=== PATIENT | female | born 1985 | race Caucasian/White ===

== ENCOUNTER 2021-04-09 18:43 | Inpatient (IN) | payer MEDICAID, SELFPAY ==
--- NOTE | ~2021-04-09 | CT_ITS ---
EXAMINATION: CT ABDOMEN AND PELVIS WITHOUT CONTRAST CLINICAL INFORMATION: Urostomy. Left flank pain. Hx pyelo and stones COMPARISON: CT scan abdomen pelvis 01/07/2019 TECHNIQUE: Multidetector volumetric imaging was performed from the superior aspect of the liver through the pubic symphysis. Sagittal and coronal reformatted images were obtained on the technologist's workstation. This CT examination was performed using dose optimization techniques as appropriate, variously including the following: *Automated exposure control *Adjustment of mA and/or kV according to patient size (this includes techniques or standardized protocols for targeted exams where dose is matched to indication/reason for exam; i.e. extremities or head) *Use of iterative reconstruction technique DLP: 263 mGy-cm FINDINGS: LUNG BASES: The visualized lung bases are unremarkable. LIVER, GALLBLADDER, AND BILIARY TREE: The liver is normal in size, shape, and attenuation. No focal hepatic lesion or biliary ductal dilatation is present. Status post cholecystectomy PANCREAS: Unremarkable. SPLEEN: Unremarkable. ADRENAL GLANDS: Adrenal glands not well seen. Limited fat planes in patient. KIDNEYS AND URETERS: The kidneys absent. Left kidney is enlarged. Left kidney measures 12.5 cm superior-inferior. No renal calculus or hydronephrosis. BLADDER: Surgically removed. GASTROINTESTINAL TRACT: History of urostomy. Postsurgical changes of bowel. No abnormally dilated bowel loop. MESENTERY: No free air or free fluid. No inflammation. ABDOMINAL WALL: Urostomy at the anterior abdominal wall. LYMPH NODES: Normal. VASCULAR: Unremarkable. PELVIC VISCERA: Unremarkable. OSSEOUS STRUCTURES: Unremarkable. CT/CT abdomen pelvis wo con IMPRESSION: Status post cystectomy with urostomy. Absent right kidney. Enlarged left kidney. No acute abnormality of the abdomen or pelvis.
--- NOTE | ~2021-04-09 | XR_ITS ---
EXAMINATION: XR CHEST CLINICAL INFORMATION: Attempted central line bilaterally. Question pneumothorax COMPARISON: 11/13/2018 TECHNIQUE: Frontal view of the chest was obtained. FINDINGS: No pneumothorax is detected. Heart size normal. No infiltrates are seen. Equivocal are present redistribution present. No gross CHF. No pleural effusion. XR/XR chest 1V IMPRESSION: No pneumothorax seen after multiple attempts at bilateral central lines
[2021-04-09 19:08] VITALS: BP 115/58; PULSE 66; RESP 16; TEMP 36.8; O2SAT 97; BMI 24.5
--- NOTE | 2021-04-09 19:15 | PC.NURSE ---
PT REFUSING TO CHANGE INTO HOSPITAL GOWN OR SHOW RN ABDOMEN TO ASSES UROSTOMY SITE. PT UNWILLING TO ASSIST WITH PROVIDING PAST MEDICAL HISTORY.
--- NOTE | 2021-04-09 19:45 | ED.GENADULT ---
HPI - General Adult General Chief complaint: General Medical <KRIS Oliver Last Filed: 04/09/21 20:43> Stated complaint: ABDOMINAL PAIN <KRIS Oliver Last Filed: 04/09/21 20:43> Time Seen by Provider: 04/09/21 19:27 <KRIS Oliver Last Filed: 04/09/21 20:43> Source: patient <KRIS Oliver Last Filed: 04/09/21 20:43> History of Present Illness HPI narrative: 36-year-old female with a PMHx of IVDU, history of congenital bladder and ureter abnormalities (managed mostly at [facility] remotely), s/p ileal conduit and urostomy, prior total L kidney loss, HCV infection, homeless, BIBA in [employer] custody complaining of bleeding urostomy site x months, urostomy missing bag secondary to people stealing it, and left flank pain. Also reports chills. Admits to multiple episodes of kidney infections/UTI. Denies fever, nausea/vomiting, diarrhea States she was at [facility] yesterday but signed out AMA <KRIS Oliver - Last Filed: 04/09/21 20:43> Related Data Home medications: Home Medications Medication Instructions Recorded Confirmed No Known Home Meds 04/09/21 04/09/21 <KRIS Oliver Last Filed: 04/09/21 20:43> Allergies/adverse reactions: Allergies Allergy/AdvReac Type Severity Reaction Status Date / Time morphine [Morphine] Allergy Severe TROUBLE Verified 04/09/21 19:16 BREATHING Sulfa (Sulfonamide Allergy Mild HIVES Verified 04/09/21 19:16 Antibiotics) <KRIS Oliver Last Filed: 04/09/21 20:43> Review of Systems Review of Systems: Constitutional: No Fever, + Chills, No Night Sweats, No Fatigue, No Malaise Cardiovascular: No Chest Pain, No SOB Respiratory: No Cough, No Dyspnea Gastrointestinal: No Nausea, No Vomiting, + Abdominal pain Genitourinary: No Dysuria, No Urinary Frequency, No Hematuria, + Flank Pain, No Urinary Flow Changes Musculoskeletal: No joint pain, No Myalgias, No Joint Swelling Skin: + Skin Lesions, No rash <KRIS Oliver - Last Filed: 04/09/21 20:43> Yes all other systems are reviewed and are negative <KRIS Oliver - Last Filed: 04/09/21 20:43> [facility] Past Medical History Attestation statement: The following information was validated with the patient. <KRIS Oliver - Last Filed: 04/09/21 20:43> Surgical History: Surgical History (Updated 04/09/21 @ 19:12 by Roselia Mascorro) History of urostomy <KRIS Oliver - Last Filed: 04/09/21 20:43> Social History Social History: Social History Advance Directives: No Advance Directives Information Provided: Yes <KRIS Oliver - Last Filed: 04/09/21 20:43> Physical Exam Vital Signs: Vital Signs: Last Vital Signs Temp 97.9 F 04/09/21 22:24 Pulse 65 04/10/21 00:49 Resp 13 04/10/21 00:49 BP 102/59 L 04/10/21 00:49 Pulse Ox 100 04/10/21 00:49 Body Mass Index 24.5 <KRIS Oliver - Last Filed: 04/09/21 20:43> Vital Signs: Last Vital Signs Temp 97.9 F 04/09/21 22:24 Pulse 65 04/10/21 00:49 Resp 13 04/10/21 00:49 BP 102/59 L 04/10/21 00:49 Pulse Ox 100 04/10/21 00:49 Body Mass Index 24.5 <Bandar Mcgovern MD - Last Filed: 04/10/21 01:03> Const: Other: Appears under the influence, lethargic during evaluation, easily arousable to voice <KRIS Oliver - Last Filed: 04/09/21 20:43> Nutritional Appearance: underweight <KRIS Oliver - Last Filed: 04/09/21 20:43> HENMT: Head: Yes normal to inspection <KRIS Oliver - Last Filed: 04/09/21 20:43> Ears: hearing grossly normal bilaterally <KRIS Oliver - Last Filed: 04/09/21 20:43> General nose exam: Normal external nose present <Amie Hernandez [facility] Last Filed: 04/09/21 20:43> Face and sinus: Yes normal facial exam <Amie Hernandez [facility] Last Filed: 04/09/21 20:43> Eyes: General: appearance normal, both eyes and all related structures <Amie Hernandez [facility] Last Filed: 04/09/21 20:43> EOM: EOMs intact bilaterally <Amie Hernandez [facility] Last Filed: 04/09/21 20:43> Neck: Neck: Yes normal visual inspection <Amie Hernandez [facility] Last Filed: 04/09/21 20:43> Resp: Effort & Inspection: normal respiratory effort <Amie Hernandez [facility] Last Filed: 04/09/21 20:43> Cardio: Rate: regular rate <Amie Hernandez [facility] Last Filed: 04/09/21 20:43> GI: Other: Urostomy stoma present in right lower quadrant with friability. No surrounding erythema/cellulitis or streaking. No pus drainage <Amie Hernandez [facility] Last Filed: 04/09/21 20:43> Inspection: Yes normal to inspection <Amie Hernandez [facility] Last Filed: 04/09/21 20:43> Palpation (GI): Soft to palpation, Tenderness to palpation present (GI) (Diffusely), no guarding and not rigid <Amie Hernandez [facility] Last Filed: 04/09/21 20:43> : General: Yes CVA tenderness on the left <Amie Hernandez [facility] Last Filed: 04/09/21 20:43> Skin: Rashes: no rashes <Amie Hernandez [facility] Last Filed: 04/09/21 20:43> Extrem: General: Yes normal to inspection <Amie Hernandez [facility] Last Filed: 04/09/21 20:43> Course Course Course Narrative: -2041--patient is a difficult stick, refusing lab draws intermittently, feeding/PO hydrating at this time, will retry -2099--ED care transferred to ILEANA Trinh pending labs, CT, & dispo per results <Amie Hernandez [facility] Last Filed: 04/09/21 20:43> Procedures Procedure Narrative Procedure Narrative: Procedure: Subclavian central line and procedural sedation I did discuss the procedure and potential complications with the patient. She did give me informed consent, she did not want to sign the consent form however. The patient was placed on a cardiac, O2 saturation and end-tidal CO2 monitor. She was given ketamine 4 milligrams/kilogram (240 mg) IM. After approximately 4 minutes the patient was sufficiently sedated. I initially prepped the right subclavian area and made 2 attempts to access the subclavian but I was unsuccessful. I then prepped the left subclavian area and was again unable to achieve access into the subclavian vein. The procedures were done with full sterile procedure and a full drape. The post procedure one-view chest x-ray revealed no evidence of pneumothorax. The patient was sufficiently sedated throughout the procedure and had no complications from the sedation with the procedure. <Bandar Mcgovern MD - Last Filed: 04/10/21 01:03> Medical Decision Making MDM Narrative Medical decision making narrative: 36-year-old female with a PMHx of IVDU, history of congenital bladder and ureter abnormalities (managed mostly at [facility] remotely), s/p ileal conduit and urostomy, prior total L kidney loss, HCV infection, homeless, BIBA in [employer] custody complaining of bleeding urostomy site x months, urostomy missing bag secondary to people stealing it, and left flank pain. Also reports chills. On exam VSS, appears under the influence, lethargic however easily arousable on exam, urostomy stoma present in RLQ without bag, friable, no overt overlying infection. Abdomen soft with diffuse tenderness, + left CVAT. Concern for UTI vs pyelonephritis vs renal stone vs other intra-abdominal pathology. Plan: Labs, UA, lactate, blood cultures, IVF, replace urostomy bag, CT, reassess <KRIS Oliver - Last Filed: 04/09/21 20:43> Lab Data Result diagrams: : 04/09/21 21:43 04/09/21 21:37 <KRIS Oliver - Last Filed: 04/09/21 20:43> Labs: Lab Results 04/09/21 04/09/21 04/09/21 Range/Units 21:37 21:43 21:43 WBC 8.3 (4.8-10.8) X10*3/uL RBC 3.52 L (4.20-5.50) X10*6/uL Hgb 10.3 L (12.0-16.0) g/dl Hct 31.9 L (37-47) % MCV 90.6 (80-98) fL MCH 29.3 (27.0-33.0) pg MCHC 32.3 (31.0-35.0) g/dl RDW 13.7 (11.0-16.0) % Plt Count 295 (160-400) X10*3/uL MPV 9.4 (9.4-12.3) fL Immature Gran % (Auto) 0.2 (0.0-0.4) % Neut % (Auto) 64.9 (45-73) % Lymph % (Auto) 26.2 (20-40) % [place] % (Auto) 6.6 (2-11) % Eos % (Auto) 1.9 (0-4) % Baso % (Auto) 0.2 (0-2) % Lymph # (Auto) 2.2 (1.2-4.9) X10*3/uL [place] # (Auto) 0.6 (0.1-1.2) X10*3/uL Eos # (Auto) 0.2 (0.0-0.4) X10*3/uL Baso # (Auto) 0.0 (0.0-0.2) X10*3/uL Abs Immat Gran (auto) 0.02 (0.00-0.03) X10*3/uL Absolute Neuts (auto) 5.4 (2.0-8.3) X10*3/uL Absolute Nucleated RBC 0.000 (0.0-0.012) X10*3/uL Nucleated RBC % (auto) 0.0 (0.0-0.2) /100WBC PT 11.5 (10.8-13.0) SEC INR 1.0 (0.9-1.1) APTT 33.6 (24.1-38.0) SEC Sodium 139 (135-145) mmol/L Potassium 2.5 L* (3.3-5.1) mmol/L Chloride 92 L (96-108) mmol/L Carbon Dioxide 35 H (22-29) mmol/L Anion Gap 15 (12-20) BUN 27 H (9-16) mg/dL Creatinine 0.90 (0.5-1.4) mg/dL Estim Creat Clear Calc 72.6 Estimated GFR > 60 Random Glucose 158 H (60-115) mg/dL Lactic Acid (0.5-2.0) mmol/L Calcium 9.1 (8.4-10.2) mg/dL Magnesium 2.1 (1.6-2.6) mg/dL Total Bilirubin 0.4 (0.0-1.0) mg/dL Direct Bilirubin 0.2 (0.0-0.5) mg/dL AST 24 (5-31) U/L ALT 13 (0-31) U/L Alkaline Phosphatase 78 (39-117) U/L Total Protein 6.9 (6.5-8.0) g/dL Albumin 3.5 (3.5-5.0) g/dL Lipase 13 (8-78) U/L Beta HCG, Quant < 2 mIU/mL Urine Color Urine Appearance Urine pH (5.0-8.0) Ur Specific [place] (1.005-1.025) Urine Protein (NEG-TRACE) MG/DL Urine Glucose (UA) (NEG) MG/DL Urine Ketones (NEG) MG/DL Urine Blood (NEG) Urine Nitrite (NEG) Ur Leukocyte Esterase (NEG) Urine RBC (0) /HPF Urine WBC (0-4) /HPF Ur Squamous Epith Cells /LPF Urine Bacteria /LPF Urine Mucus /LPF Urine Opiates Screen (Not Detect) Ur Barbiturates Screen (Not Detect) Ur Phencyclidine Scrn (Not Detect) Ur Amphetamines Screen (Not Detect) U Benzodiazepines Scrn (Not Detect) Urine Cocaine Screen (Not Detect) U Marijuana (THC) Screen (Not Detect) COVID-19 (YASMIN) (Negative) COVID-19 Clin Com 04/09/21 04/09/21 04/09/21 Range/Units 21:43 21:44 21:44 WBC (4.8-10.8) X10*3/uL RBC (4.20-5.50) X10*6/uL Hgb (12.0-16.0) g/dl Hct (37-47) % MCV (80-98) fL MCH (27.0-33.0) pg MCHC (31.0-35.0) g/dl RDW (11.0-16.0) % Plt Count (160-400) X10*3/uL MPV (9.4-12.3) fL Immature Gran % (Auto) (0.0-0.4) % Neut % (Auto) (45-73) % Lymph % (Auto) (20-40) % [place] % (Auto) (2-11) % Eos % (Auto) (0-4) % Baso % (Auto) (0-2) % Lymph # (Auto) (1.2-4.9) X10*3/uL [place] # (Auto) (0.1-1.2) X10*3/uL Eos # (Auto) (0.0-0.4) X10*3/uL Baso # (Auto) (0.0-0.2) X10*3/uL Abs Immat Gran (auto) (0.00-0.03) X10*3/uL Absolute Neuts (auto) (2.0-8.3) X10*3/uL Absolute Nucleated RBC (0.0-0.012) X10*3/uL Nucleated RBC % (auto) (0.0-0.2) /100WBC PT (10.8-13.0) SEC INR (0.9-1.1) APTT (24.1-38.0) SEC Sodium (135-145) mmol/L Potassium (3.3-5.1) mmol/L Chloride (96-108) mmol/L Carbon Dioxide (22-29) mmol/L Anion Gap (12-20) BUN (9-16) mg/dL Creatinine (0.5-1.4) mg/dL Estim Creat Clear Calc Estimated GFR Random Glucose (60-115) mg/dL Lactic Acid 2.8 H* (0.5-2.0) mmol/L Calcium (8.4-10.2) mg/dL Magnesium (1.6-2.6) mg/dL Total Bilirubin (0.0-1.0) mg/dL Direct Bilirubin (0.0-0.5) mg/dL AST (5-31) U/L ALT (0-31) U/L Alkaline Phosphatase (39-117) U/L Total Protein (6.5-8.0) g/dL Albumin (3.5-5.0) g/dL Lipase (8-78) U/L Beta HCG, Quant mIU/mL Urine Color YELLOW Urine Appearance CLOUDY Urine pH 7.5 (5.0-8.0) Ur Specific [place] 1.015 (1.005-1.025) Urine Protein 2+ H (NEG-TRACE) MG/DL Urine Glucose (UA) NEG (NEG) MG/DL Urine Ketones NEG (NEG) MG/DL Urine Blood 2+ H (NEG) Urine Nitrite NEG (NEG) Ur Leukocyte Esterase 2+ H (NEG) Urine RBC 5-9 H (0) /HPF Urine WBC 10-14 H (0-4) /HPF Ur Squamous Epith Cells 1+ /LPF Urine Bacteria 4+ /LPF Urine Mucus 2+ /LPF Urine Opiates Screen (Not Detect) Ur Barbiturates Screen (Not Detect) Ur Phencyclidine Scrn (Not Detect) Ur Amphetamines Screen (Not Detect) U Benzodiazepines Scrn (Not Detect) Urine Cocaine Screen (Not Detect) U Marijuana (THC) Screen (Not Detect) COVID-19 (YASMIN) Negative (Negative) COVID-19 Clin Com See Note 04/09/21 Range/Units 21:44 WBC (4.8-10.8) X10*3/uL RBC (4.20-5.50) X10*6/uL Hgb (12.0-16.0) g/dl Hct (37-47) % MCV (80-98) fL MCH (27.0-33.0) pg MCHC (31.0-35.0) g/dl RDW (11.0-16.0) % Plt Count (160-400) X10*3/uL MPV (9.4-12.3) fL Immature Gran % (Auto) (0.0-0.4) % Neut % (Auto) (45-73) % Lymph % (Auto) (20-40) % [place] % (Auto) (2-11) % Eos % (Auto) (0-4) % Baso % (Auto) (0-2) % Lymph # (Auto) (1.2-4.9) X10*3/uL [place] # (Auto) (0.1-1.2) X10*3/uL Eos # (Auto) (0.0-0.4) X10*3/uL Baso # (Auto) (0.0-0.2) X10*3/uL Abs Immat Gran (auto) (0.00-0.03) X10*3/uL Absolute Neuts (auto) (2.0-8.3) X10*3/uL Absolute Nucleated RBC (0.0-0.012) X10*3/uL Nucleated RBC % (auto) (0.0-0.2) /100WBC PT (10.8-13.0) SEC INR (0.9-1.1) APTT (24.1-38.0) SEC Sodium (135-145) mmol/L Potassium (3.3-5.1) mmol/L Chloride (96-108) mmol/L Carbon Dioxide (22-29) mmol/L Anion Gap (12-20) BUN (9-16) mg/dL Creatinine (0.5-1.4) mg/dL Estim Creat Clear Calc Estimated GFR Random Glucose (60-115) mg/dL Lactic Acid (0.5-2.0) mmol/L Calcium (8.4-10.2) mg/dL Magnesium (1.6-2.6) mg/dL Total Bilirubin (0.0-1.0) mg/dL Direct Bilirubin (0.0-0.5) mg/dL AST (5-31) U/L ALT (0-31) U/L Alkaline Phosphatase (39-117) U/L Total Protein (6.5-8.0) g/dL Albumin (3.5-5.0) g/dL Lipase (8-78) U/L Beta HCG, Quant mIU/mL Urine Color Urine Appearance Urine pH (5.0-8.0) Ur Specific [place] (1.005-1.025) Urine Protein (NEG-TRACE) MG/DL Urine Glucose (UA) (NEG) MG/DL Urine Ketones (NEG) MG/DL Urine Blood (NEG) Urine Nitrite (NEG) Ur Leukocyte Esterase (NEG) Urine RBC (0) /HPF Urine WBC (0-4) /HPF Ur Squamous Epith Cells /LPF Urine Bacteria /LPF Urine Mucus /LPF Urine Opiates Screen POSITIVE H (Not Detect) Ur Barbiturates Screen Not Detected (Not Detect) Ur Phencyclidine Scrn Not Detected (Not Detect) Ur Amphetamines Screen Not Detected (Not Detect) U Benzodiazepines Scrn Not Detected (Not Detect) Urine Cocaine Screen POSITIVE H (Not Detect) U Marijuana (THC) Screen Not Detected (Not Detect) COVID-19 (YASMIN) (Negative) COVID-19 Clin Com <KRIS Oliver - Last Filed: 04/09/21 20:43> Lab Results 04/09/21 04/09/21 04/09/21 Range/Units 21:37 21:43 21:43 WBC 8.3 (4.8-10.8) X10*3/uL RBC 3.52 L (4.20-5.50) X10*6/uL Hgb 10.3 L (12.0-16.0) g/dl Hct 31.9 L (37-47) % MCV 90.6 (80-98) fL MCH 29.3 (27.0-33.0) pg MCHC 32.3 (31.0-35.0) g/dl RDW 13.7 (11.0-16.0) % Plt Count 295 (160-400) X10*3/uL MPV 9.4 (9.4-12.3) fL Immature Gran % (Auto) 0.2 (0.0-0.4) % Neut % (Auto) 64.9 (45-73) % Lymph % (Auto) 26.2 (20-40) % [place] % (Auto) 6.6 (2-11) % Eos % (Auto) 1.9 (0-4) % Baso % (Auto) 0.2 (0-2) % Lymph # (Auto) 2.2 (1.2-4.9) X10*3/uL [place] # (Auto) 0.6 (0.1-1.2) X10*3/uL Eos # (Auto) 0.2 (0.0-0.4) X10*3/uL Baso # (Auto) 0.0 (0.0-0.2) X10*3/uL Abs Immat Gran (auto) 0.02 (0.00-0.03) X10*3/uL Absolute Neuts (auto) 5.4 (2.0-8.3) X10*3/uL Absolute Nucleated RBC 0.000 (0.0-0.012) X10*3/uL Nucleated RBC % (auto) 0.0 (0.0-0.2) /100WBC PT 11.5 (10.8-13.0) SEC INR 1.0 (0.9-1.1) APTT 33.6 (24.1-38.0) SEC Sodium 139 (135-145) mmol/L Potassium 2.5 L* (3.3-5.1) mmol/L Chloride 92 L (96-108) mmol/L Carbon Dioxide 35 H (22-29) mmol/L Anion Gap 15 (12-20) BUN 27 H (9-16) mg/dL Creatinine 0.90 (0.5-1.4) mg/dL Estim Creat Clear Calc 72.6 Estimated GFR > 60 Random Glucose 158 H (60-115) mg/dL Lactic Acid (0.5-2.0) mmol/L Calcium 9.1 (8.4-10.2) mg/dL Magnesium 2.1 (1.6-2.6) mg/dL Total Bilirubin 0.4 (0.0-1.0) mg/dL Direct Bilirubin 0.2 (0.0-0.5) mg/dL AST 24 (5-31) U/L ALT 13 (0-31) U/L Alkaline Phosphatase 78 (39-117) U/L Total Protein 6.9 (6.5-8.0) g/dL Albumin 3.5 (3.5-5.0) g/dL Lipase 13 (8-78) U/L Beta HCG, Quant < 2 mIU/mL Urine Color Urine Appearance Urine pH (5.0-8.0) Ur Specific [place] (1.005-1.025) Urine Protein (NEG-TRACE) MG/DL Urine Glucose (UA) (NEG) MG/DL Urine Ketones (NEG) MG/DL Urine Blood (NEG) Urine Nitrite (NEG) Ur Leukocyte Esterase (NEG) Urine RBC (0) /HPF Urine WBC (0-4) /HPF Ur Squamous Epith Cells /LPF Urine Bacteria /LPF Urine Mucus /LPF Urine Opiates Screen (Not Detect) Ur Barbiturates Screen (Not Detect) Ur Phencyclidine Scrn (Not Detect) Ur Amphetamines Screen (Not Detect) U Benzodiazepines Scrn (Not Detect) Urine Cocaine Screen (Not Detect) U Marijuana (THC) Screen (Not Detect) COVID-19 (YASMIN) (Negative) COVID-19 Clin Com 04/09/21 04/09/21 04/09/21 Range/Units 21:43 21:44 21:44 WBC (4.8-10.8) X10*3/uL RBC (4.20-5.50) X10*6/uL Hgb (12.0-16.0) g/dl Hct (37-47) % MCV (80-98) fL MCH (27.0-33.0) pg MCHC (31.0-35.0) g/dl RDW (11.0-16.0) % Plt Count (160-400) X10*3/uL MPV (9.4-12.3) fL Immature Gran % (Auto) (0.0-0.4) % Neut % (Auto) (45-73) % Lymph % (Auto) (20-40) % [place] % (Auto) (2-11) % Eos % (Auto) (0-4) % Baso % (Auto) (0-2) % Lymph # (Auto) (1.2-4.9) X10*3/uL [place] # (Auto) (0.1-1.2) X10*3/uL Eos # (Auto) (0.0-0.4) X10*3/uL Baso # (Auto) (0.0-0.2) X10*3/uL Abs Immat Gran (auto) (0.00-0.03) X10*3/uL Absolute Neuts (auto) (2.0-8.3) X10*3/uL Absolute Nucleated RBC (0.0-0.012) X10*3/uL Nucleated RBC % (auto) (0.0-0.2) /100WBC PT (10.8-13.0) SEC INR (0.9-1.1) APTT (24.1-38.0) SEC Sodium (135-145) mmol/L Potassium (3.3-5.1) mmol/L Chloride (96-108) mmol/L Carbon Dioxide (22-29) mmol/L Anion Gap (12-20) BUN (9-16) mg/dL Creatinine (0.5-1.4) mg/dL Estim Creat Clear Calc Estimated GFR Random Glucose (60-115) mg/dL Lactic Acid 2.8 H* (0.5-2.0) mmol/L Calcium (8.4-10.2) mg/dL Magnesium (1.6-2.6) mg/dL Total Bilirubin (0.0-1.0) mg/dL Direct Bilirubin (0.0-0.5) mg/dL AST (5-31) U/L ALT (0-31) U/L Alkaline Phosphatase (39-117) U/L Total Protein (6.5-8.0) g/dL Albumin (3.5-5.0) g/dL Lipase (8-78) U/L Beta HCG, Quant mIU/mL Urine Color YELLOW Urine Appearance CLOUDY Urine pH 7.5 (5.0-8.0) Ur Specific [place] 1.015 (1.005-1.025) Urine Protein 2+ H (NEG-TRACE) MG/DL Urine Glucose (UA) NEG (NEG) MG/DL Urine Ketones NEG (NEG) MG/DL Urine Blood 2+ H (NEG) Urine Nitrite NEG (NEG) Ur Leukocyte Esterase 2+ H (NEG) Urine RBC 5-9 H (0) /HPF Urine WBC 10-14 H (0-4) /HPF Ur Squamous Epith Cells 1+ /LPF Urine Bacteria 4+ /LPF Urine Mucus 2+ /LPF Urine Opiates Screen (Not Detect) Ur Barbiturates Screen (Not Detect) Ur Phencyclidine Scrn (Not Detect) Ur Amphetamines Screen (Not Detect) U Benzodiazepines Scrn (Not Detect) Urine Cocaine Screen (Not Detect) U Marijuana (THC) Screen (Not Detect) COVID-19 (YASMIN) Negative (Negative) COVID-19 Clin Com See Note 04/09/21 Range/Units 21:44 WBC (4.8-10.8) X10*3/uL RBC (4.20-5.50) X10*6/uL Hgb (12.0-16.0) g/dl Hct (37-47) % MCV (80-98) fL MCH (27.0-33.0) pg MCHC (31.0-35.0) g/dl RDW (11.0-16.0) % Plt Count (160-400) X10*3/uL MPV (9.4-12.3) fL Immature Gran % (Auto) (0.0-0.4) % Neut % (Auto) (45-73) % Lymph % (Auto) (20-40) % [place] % (Auto) (2-11) % Eos % (Auto) (0-4) % Baso % (Auto) (0-2) % Lymph # (Auto) (1.2-4.9) X10*3/uL [place] # (Auto) (0.1-1.2) X10*3/uL Eos # (Auto) (0.0-0.4) X10*3/uL Baso # (Auto) (0.0-0.2) X10*3/uL Abs Immat Gran (auto) (0.00-0.03) X10*3/uL Absolute Neuts (auto) (2.0-8.3) X10*3/uL Absolute Nucleated RBC (0.0-0.012) X10*3/uL Nucleated RBC % (auto) (0.0-0.2) /100WBC PT (10.8-13.0) SEC INR (0.9-1.1) APTT (24.1-38.0) SEC Sodium (135-145) mmol/L Potassium (3.3-5.1) mmol/L Chloride (96-108) mmol/L Carbon Dioxide (22-29) mmol/L Anion Gap (12-20) BUN (9-16) mg/dL Creatinine (0.5-1.4) mg/dL Estim Creat Clear Calc Estimated GFR Random Glucose (60-115) mg/dL Lactic Acid (0.5-2.0) mmol/L Calcium (8.4-10.2) mg/dL Magnesium (1.6-2.6) mg/dL Total Bilirubin (0.0-1.0) mg/dL Direct Bilirubin (0.0-0.5) mg/dL AST (5-31) U/L ALT (0-31) U/L Alkaline Phosphatase (39-117) U/L Total Protein (6.5-8.0) g/dL Albumin (3.5-5.0) g/dL Lipase (8-78) U/L Beta HCG, Quant mIU/mL Urine Color Urine Appearance Urine pH (5.0-8.0) Ur Specific [place] (1.005-1.025) Urine Protein (NEG-TRACE) MG/DL Urine Glucose (UA) (NEG) MG/DL Urine Ketones (NEG) MG/DL Urine Blood (NEG) Urine Nitrite (NEG) Ur Leukocyte Esterase (NEG) Urine RBC (0) /HPF Urine WBC (0-4) /HPF Ur Squamous Epith Cells /LPF Urine Bacteria /LPF Urine Mucus /LPF Urine Opiates Screen POSITIVE H (Not Detect) Ur Barbiturates Screen Not Detected (Not Detect) Ur Phencyclidine Scrn Not Detected (Not Detect) Ur Amphetamines Screen Not Detected (Not Detect) U Benzodiazepines Scrn Not Detected (Not Detect) Urine Cocaine Screen POSITIVE H (Not Detect) U Marijuana (THC) Screen Not Detected (Not Detect) COVID-19 (YASMIN) (Negative) COVID-19 Clin Com <Bandar Mcgovern MD - Last Filed: 04/10/21 01:03> Discharge Plan Discharge Clinical Impression: Acute hypokalemia, Acidosis, lactic UTI (urinary tract infection) Qualifiers: Urinary tract infection type: acute cystitis Hematuria presence: with hematuria Qualified Code(s): N30.01 - Acute cystitis with hematuria <KRIS Oliver - Last Filed: 04/09/21 20:43> Patient Disposition: Admitted As Inpatient <KRIS Oliver - Last Filed: 04/09/21 20:43>
[2021-04-09 20:09] VITALS: BP 144/83; PULSE 56; RESP 22; TEMP 36.6; O2SAT 96
--- NOTE | 2021-04-09 20:44 | PC.NURSE ---
PT HAS VERY LIMITED PERIPHERAL ACCESS, PT REFUSED TO ALLOW SECOND ATTEMPT UNTIL PROVIDER WAS AT BEDSIDE TO EXPLAIN IMPORTANCE OF LABWORK AND IV FOR HYDRATION. PT MORE COOPERATIVE FOLLOWING WATER AND CRACKERS GIVEN TO HER BY PROVIDER.
[2021-04-09 21:52] LABS: MANUAL DIFF FLAG NO
[2021-04-09 21:55] LABS: Basophils Percent Auto 0.2 % (0-2); Eosinophils Absolute Auto 0.2 X10*3/uL (0.0-0.4); Eosinophils Percent Auto 1.9 % (0-4); Hematocrit 31.9 % (37-47); Hemoglobin 10.3 g/dl (12.0-16.0); Imm Gran Abs Auto 0.02 X10*3/uL (0.00-0.03); Imm Gran Pct Auto 0.2 % (0.0-0.4); Lymphocytes Absolute Auto 2.2 X10*3/uL (1.2-4.9); Lymphocytes Percent Auto 26.2 % (20-40); Mean Corpuscular HGB Conc 32.3 g/dl (31.0-35.0); Mean Corpuscular Hemoglobin 29.3 pg (27.0-33.0); Mean Corpuscular Volume 90.6 fL (80-98); Mean Platelet Volume 9.4 fL (9.4-12.3); Monocytes Absolute Auto 0.6 X10*3/uL (0.1-1.2); Monocytes Percent Auto 6.6 % (2-11); Neutrophils Absolute Auto 5.4 X10*3/uL (2.0-8.3); Neutrophils Percent Auto 64.9 % (45-73); Platelet Count 295 X10*3/uL (160-400); Red Blood Count 3.52 X10*6/uL (4.20-5.50); Red Cell Distribution Width 13.7 % (11.0-16.0); White Blood Count 8.3 X10*3/uL (4.8-10.8)
[2021-04-09 22:01] LABS: Prothrombin Time 11.5 SEC (10.8-13.0)
[2021-04-09 22:03] LABS: Partial Thromboplastin Time 33.6 SEC (24.1-38.0)
--- NOTE | 2021-04-09 22:10 | PC.NURSE ---
UNABLE TO OBTAIN IV, BUT ALL ORDERED LABS SENT. PT WOULD NOT ALLOW US TO CHANGE HER OUT OF URINE SOAKED PANTS. URO BAG PLACED. URINE DRAINING FROM UROSTOMY.
[2021-04-09 22:15] LABS: Lactic Acid 2.8 mmol/L (0.5-2.0)
[2021-04-09 22:20] LABS: HCG Quantitative < 2 mIU/mL
[2021-04-09 22:24] VITALS: BP 97/51; PULSE 56; RESP 16; TEMP 36.6; O2SAT 94
[2021-04-09 22:28] LABS: Glucose Urine UA NEG (NEG); Leukocyte Esterase Urine 2+ (NEG); Nitrite Urine NEG (NEG); PH 7.5 (5.0-8.0); Specific Gravity - Urine 1.015 (1.005-1.025); UACC Culture Trigger YES; Urine Blood 2+ (NEG); Urine Ketones NEG (NEG); Urine Protein 2+ MG/DL (NEG-TRACE)
[2021-04-09 22:28] LABS: Alanine Aminotransferase 13 U/L (0-31); Albumin Level 3.5 g/dL (3.5-5.0); Alkaline Phosphatase 78 U/L (39-117); Anion Gap 15 (12-20); Aspartate Amino Transferase 24 U/L (5-31); Bilirubin Direct 0.2 mg/dL (0.0-0.5); Bilirubin Total 0.4 mg/dL (0.0-1.0); Blood Urea Nitrogen 27 mg/dL (9-16); Calcium 9.1 mg/dL (8.4-10.2); Carbon Dioxide 35 mmol/L (22-29); Chloride 92 mmol/L (96-108); Creatinine Clr Calc Pharmacy 72.6; Estimated Glomerular Filt Rate > 60; Glucose Random 158 mg/dL (60-115); Lipase 13 U/L (8-78); Magnesium 2.1 mg/dL (1.6-2.6); Potassium 2.5 mmol/L (3.3-5.1); Sodium 139 mmol/L (135-145); Total Protein 6.9 g/dL (6.5-8.0)
[2021-04-09 22:38] LABS: Appearance Urine CLOUDY; Bacteria Urine 4+ /LPF; Color Urine YELLOW; Mucus Urine 2+ /LPF; Squamous Epithelial Cell Urine 1+ /LPF
[2021-04-09 22:41] LABS: COVID-19 Test Negative (Negative)
[2021-04-09 22:44] LABS: Amphetamine Screen Urine Not Detected (Not Detect); Barbiturates, Urine Not Detected (Not Detect); Benzodiazepines Screen Urine Not Detected (Not Detect); Cannabinoid Screen Urine Not Detected (Not Detect); Cocaine Screen Urine POSITIVE (Not Detect); Opiate Screen Urine POSITIVE (Not Detect); Phencyclidine Screen Urine Not Detected (Not Detect)
--- NOTE | 2021-04-09 22:49 | PC.NURSE ---
PT IN CT SCAN, OFFICER AT BEDSIDE. PT AWARE THAT SHE NEEDS TO BE ADMITTED. MD WILL DISCUSS PLACING A CENTRAL LINE WHEN SHE RETURNS FROM CT SCAN.
[2021-04-09] MEDS: Ketamine HCl 500 MG/5 ML VIAL 240 MG IM (23:25)
[2021-04-09 23:29] VITALS: BP 108/65; PULSE 56; RESP 9; O2SAT 98
[2021-04-09 23:49] LABS: Reflex Lactate? Lactic Acid Added
[2021-04-10] VITALS (7 sets, daily range): BP systolic 97–128; BP diastolic 56–89; PULSE 52–91; RESP 13–17; TEMP 36.4–37.1; O2SAT 97–100
[2021-04-10] MEDS: 0.9 % Sodium Chloride 1,000 ML 999 ML IVCONT ×2 (00:11→00:50)
--- NOTE | 2021-04-10 00:12 | PC.NURSE ---
PT MEDICATED WITH KETAMINE TO ASSIST WITH LIMITED PAIN AND MOVEMENT. PT VERBALLY CONSENTED TO PROCEDURE WITH CARY ERAZO RN AND MYSELF WITNESS. CENTRAL LINE NOT PLACED, PT DID SUCCESSFULLY RECEIVE #18 G ANGIO TO LEFT UPPER ARM BY WITH ASSIST OF ULTRSOUND. PT TOLERATED PROCEDURE WELL.
--- NOTE | 2021-04-10 00:28 | PC.NURSE ---
PT NOT ABLE TO SWALLOW POTASSIUM CAPSULES. WILL REQUEST POTASSIUM POWDER.
[2021-04-10] MEDS: cefTRIAXone sodium 1 GM in 0.9 % Sodium Chloride 50 ML IV (00:29)
[2021-04-10] MEDS: Potassium Chloride Packet 20 MEQ PACKET 40 MEQ PO ×2 (01:33→05:17)
--- NOTE | 2021-04-10 02:04 | PC.NURSE ---
PT REFUSED TO ALLOW REPEAT LACTIC ACID. ATTEMPT X2 UNSUCCESSFUL, PT WILL NOT ALLOW FURTHER ATTEMPTS. UNABLE TO DRAW LACTIC FROM J-LOOP.
--- NOTE | 2021-04-10 02:07 | PC.NURSE ---
CALLED PHLEBOTOMY [facility] TO ATTEMPT REPEAT LACTIC.
[2021-04-10 03:14] LABS: ~Lactic Acid-LAB USE ONLY 1.1 mmol/L (0.5-2.0)
--- NOTE | 2021-04-10 05:43 | P.HPHOSP_ITS ---
History of Present Illness Date of Service: 04/10/21 Chief Complaint: Left kidney pain Patient is a 36-year-old female with past medical history of cystectomy, right nephrectomy who presents to the hospital with complaints of right kidney pain. Patient reports that she is homeless, last her urostomy bag, and has been producing discolored malodorous urine as well as having left kidney pain and therefore she know she had an infection. Patient was somehow involved with a lot this time and a police officers accompanying the patient. She is not too forthcoming with history, just reports that she is having a lot of left flank pain. 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 She reports fever and chills, some nausea vomiting, no chest of breath, and no lower extremity blood. On arrival to the ED patient hemodynamically stable with a temp of 98.3?, heart rate of 66, respiratory rate of 16, blood pressure 115/58, satting 97% on room air. Labs are significant for WBC count of 8.3, hemoglobin of 10.3, sodium of 139, potassium of 2.5, lactic acid of 2.8, magnesium of 2.1, UA that is positive for leukocyte Estrace, WBC and UDS positive for opioids and cocaine. Abdominal CT shows status post cystectomy with urostomy, absent right kidney, enlarged left kidney, no abnormality in the abdomen or pelvis , chest x-ray negative. Review of Systems Review of Systems: Yes all other systems are reviewed and are negative [facility] Surgical History History of nephrectomy, right History of total cystectomy History of urostomy Social History Advance Directives: No Advance Directives Information Provided: Yes Meds Allergies Allergy/AdvReac Type Severity Reaction Status Date / Time morphine [Morphine] Allergy Severe TROUBLE Verified 04/09/21 19:16 BREATHING Sulfa (Sulfonamide Allergy Mild HIVES Verified 04/09/21 19:16 Antibiotics) Active Medications: Current Medications Generic Name Dose Route Start Last Admin Trade Name Freq PRN Reason Stop Dose Admin Acetaminophen 650 mg 04/10/21 05:00 Acetaminophen 325 Mg Tablet PO Q6H PRN Pain, Mild (Pain Scale 1-3) Docusate Sodium 100 mg 04/10/21 05:00 Docusate Sodium 100 Mg Capsule PO DAILY PRN Constipation Enoxaparin Sodium 40 mg 04/10/21 06:00 Enoxaparin Sodium 40 Mg/0.4 Ml Syringe SUBCUT Q24H STACIE Ceftriaxone Sodium 1 gm/ 50 mls @ 100 mls/hr 04/10/21 22:00 Sodium Chloride IV Q24H STACIE Ondansetron HCl 4 mg 04/10/21 05:00 Ondansetron Hcl 4 Mg/2 Ml Vial IVPUSH Q8H PRN Nausea and Vomiting Pharmacy Consult 1 each 04/09/21 20:38 Consult Rx Perform Med Rec MISCELLANE ONCE PRN Consult order Potassium Chloride 40 meq 04/10/21 04:15 04/10/21 05:17 Potassium Chloride Packet 20 Meq Packet PO 04/10/21 08:16 40 meq Q4H STACIE Administration Home Medications Medication Instructions Recorded Confirmed Last Taken Type No Known Home Meds 04/09/21 04/09/21 Unknown History Physical Exam Vital Signs and Narrative: Vital Signs: Last Vital Signs Temp 97.8 F 04/10/21 05:18 Pulse 66 04/10/21 05:18 Resp 17 04/10/21 05:18 BP 97/56 L 04/10/21 05:18 Pulse Ox 99 04/10/21 05:18 Body Mass Index 24.5 Const: Other: Patient appears very cachectic, has many scratches and scabs on the face and rest of body General: cooperative, no acute distress and poor hygiene Orientation/consciousness: patient oriented x3 Eyes: General: appearance normal, both eyes and all related structures Resp: Effort & Inspection: normal respiratory effort and able to speak in complete sentences Cardio: Rate: regular rate Rhythm: regular rhythm GI: Palpation (GI): Soft to palpation Auscultation: normal bowel sounds : Other: Urostomy bag in place Skin: Other: Scabbing lesions all over the body including the face Neuro: General: patient oriented x3 Cognition (Neuro): normal cognition Extrem: General: Yes normal to inspection and Yes no pedal edema Results Labs CBC and Chem 7: 04/09/21 21:43 04/09/21 21:37 Labs: Laboratory Results - last 24 hr 04/09/21 04/09/21 04/09/21 21:37 21:43 21:43 MCV 90.6 MCH 29.3 MCHC 32.3 RDW 13.7 Plt Count 295 MPV 9.4 Immature Gran % (Auto) 0.2 Neut % (Auto) 64.9 Lymph % (Auto) 26.2 [place] % (Auto) 6.6 Eos % (Auto) 1.9 Baso % (Auto) 0.2 Lymph # (Auto) 2.2 [place] # (Auto) 0.6 Eos # (Auto) 0.2 Baso # (Auto) 0.0 Abs Immat Gran (auto) 0.02 Absolute Neuts (auto) 5.4 Absolute Nucleated RBC 0.000 Nucleated RBC % (auto) 0.0 PT 11.5 INR 1.0 APTT 33.6 Anion Gap 15 Estim Creat Clear Calc 72.6 Estimated GFR > 60 Random Glucose 158 H Lactic Acid Lactic Acid Fup @ 2Hr Calcium 9.1 Magnesium 2.1 Total Bilirubin 0.4 Direct Bilirubin 0.2 AST 24 ALT 13 Alkaline Phosphatase 78 Total Protein 6.9 Albumin 3.5 Lipase 13 Beta HCG, Quant < 2 Urine Color Urine Appearance Urine pH Ur Specific [place] Urine Protein Urine Glucose (UA) Urine Ketones Urine Blood Urine Nitrite Ur Leukocyte Esterase Urine RBC Urine WBC Ur Squamous Epith Cells Urine Bacteria Urine Mucus Urine Opiates Screen Ur Barbiturates Screen Ur Phencyclidine Scrn Ur Amphetamines Screen U Benzodiazepines Scrn Urine Cocaine Screen U Marijuana (THC) Screen COVID-19 (YASMIN) COVID-19 Clin Com 04/09/21 04/09/21 04/09/21 21:43 21:44 21:44 MCV MCH MCHC RDW Plt Count MPV Immature Gran % (Auto) Neut % (Auto) Lymph % (Auto) [place] % (Auto) Eos % (Auto) Baso % (Auto) Lymph # (Auto) [place] # (Auto) Eos # (Auto) Baso # (Auto) Abs Immat Gran (auto) Absolute Neuts (auto) Absolute Nucleated RBC Nucleated RBC % (auto) PT INR APTT Anion Gap Estim Creat Clear Calc Estimated GFR Random Glucose Lactic Acid 2.8 H* Lactic Acid Fup @ 2Hr Calcium Magnesium Total Bilirubin Direct Bilirubin AST ALT Alkaline Phosphatase Total Protein Albumin Lipase Beta HCG, Quant Urine Color YELLOW Urine Appearance CLOUDY Urine pH 7.5 Ur Specific [place] 1.015 Urine Protein 2+ H Urine Glucose (UA) NEG Urine Ketones NEG Urine Blood 2+ H Urine Nitrite NEG Ur Leukocyte Esterase 2+ H Urine RBC 5-9 H Urine WBC 10-14 H Ur Squamous Epith Cells 1+ Urine Bacteria 4+ Urine Mucus 2+ Urine Opiates Screen Ur Barbiturates Screen Ur Phencyclidine Scrn Ur Amphetamines Screen U Benzodiazepines Scrn Urine Cocaine Screen U Marijuana (THC) Screen COVID-19 (YASMIN) Negative COVID-19 Clin Com See Note 04/09/21 04/10/21 21:44 02:54 MCV MCH MCHC RDW Plt Count MPV Immature Gran % (Auto) Neut % (Auto) Lymph % (Auto) [place] % (Auto) Eos % (Auto) Baso % (Auto) Lymph # (Auto) [place] # (Auto) Eos # (Auto) Baso # (Auto) Abs Immat Gran (auto) Absolute Neuts (auto) Absolute Nucleated RBC Nucleated RBC % (auto) PT INR APTT Anion Gap Estim Creat Clear Calc Estimated GFR Random Glucose Lactic Acid Lactic Acid Fup @ 2Hr 1.1 Calcium Magnesium Total Bilirubin Direct Bilirubin AST ALT Alkaline Phosphatase Total Protein Albumin Lipase Beta HCG, Quant Urine Color Urine Appearance Urine pH Ur Specific [place] Urine Protein Urine Glucose (UA) Urine Ketones Urine Blood Urine Nitrite Ur Leukocyte Esterase Urine RBC Urine WBC Ur Squamous Epith Cells Urine Bacteria Urine Mucus Urine Opiates Screen POSITIVE H Ur Barbiturates Screen Not Detected Ur Phencyclidine Scrn Not Detected Ur Amphetamines Screen Not Detected U Benzodiazepines Scrn Not Detected Urine Cocaine Screen POSITIVE H U Marijuana (THC) Screen Not Detected COVID-19 (YASMIN) COVID-19 Clin Com Imaging Radiologist's Impressions: Impressions Abdomen/Pelvis CT 04/09/21 19:59 IMPRESSION: Status post cystectomy with urostomy. Absent right kidney. Enlarged left kidney. No acute abnormality of the abdomen or pelvis. Chest X-Ray 04/10/21 00:00 IMPRESSION: No pneumothorax seen after multiple attempts at bilateral central lines Assessment and Plan (1) Acute hypokalemia: Status: Acute (2) Acidosis, lactic: Status: Acute (3) UTI (urinary tract infection): Qualifiers: Hematuria presence: with hematuria Urinary tract infection type: acute cystitis Qualified Code(s): N30.01 - Acute cystitis with hematuria Status: Acute 36-year-old female with history of cystoscopy and nephrectomy presents to the hospital with UTI # urinary tract infection - positive UA - will start on ceftriaxone - follow cultures # lactic acidosis - Most likely secondary to infection - improved with IV fluids - continue IV fluid resuscitation # acute hyperkalemia - normal magnesium - repleted - follow BMP DVT prophylaxis: Lovenox Quality Stroke Does the patient have a stroke diagnosis?: No VTE Prior VTE?: No VTE Risk Level:: Medical - moderate - high VTE Device Contraindication: Treatment Not Indicated VTE Drug Contraindication: N/A - Med Ordered
--- NOTE | 2021-04-10 05:59 | PC.NURSE ---
JUST AFTER HOSPITALIST LEFT PT'S BEDSIDE, PT REPORTS THAT IT FELT THAT HER UROSTOMY BAG WAS LEAKING. BOTTOM OF BAG ADHESIVE WAS NOT SECURED ANY LONGER. PT INITIALLY COOPERATIVE AND ALLOWED ME TO TRY AND DRY SITE TO APPLY BENZOIN. PT THEN SAT UP AND REFUSED TO LET ME FINISH. PT UNSURE IF SHE WAS GOING TO VOMIT. PT THEN LOST CONTROL OF HER BOWELS AND STARTED WALKING AROUND HER ROOM. WENT TO GET COMMODE, PT HAD REMOVED HER URINE SOAKED CLOTHING FROM BAG. PT FINISHED WITH COMMODE AND WAS LAYING ON STRETCHED WITHOUT SHEETS. CLEAN SHEETS AND SAMANTHA PADS PLACED ON STRETCHER. PT WAS GIVEN OXYCODONE THAT HAD JUST BEEN ADDED TO MAR. PT ASKING TO SEE THE DOCTOR, STATES THAT OXY WON'T WORK. PT NOT ALLOWING ME TO ATTACH IV TUBING WITH LR.
[2021-04-10] MEDS: oxyCODONE HCl Immed Release 5 MG TABLET PO ×2 (06:05→16:53)
[2021-04-10] MEDS: Lactated Ringers 500 ML 999 ML IV (06:14)
--- NOTE | 2021-04-10 06:20 | PC.NURSE ---
PT REQUESTED AND WAS GIVEN SODA AND CRACKERS. PT REFUSED ZOFRAN.
--- NOTE | 2021-04-10 06:24 | PC.NURSE ---
PT ASKING FOR DILAUDID, WILL PASS THIS ALONG TO HOSPITALIST.
[2021-04-10] MEDS: HYDROmorphone HCl 0.5 MG/0.5 ML SYRINGE IVPUSH (06:44)
--- NOTE | 2021-04-10 08:47 | PC.NURSE ---
PT refused blood draw. RN aware.
--- NOTE | 2021-04-10 09:00 | PC.NURSE ---
Pt refusing all medications at this time. will attempt to administer again.
--- NOTE | 2021-04-10 10:26 | PC.NURSE ---
Pt still refusing medications. Yelling out Help! . Pt states she wants Dilaudid, Hospitalist Sanjiv notified. States patient can have prn Oxycodone.
--- NOTE | 2021-04-10 10:30 | MHC.RECOVRN ---
36 year old female presented to [facility] ED via EMS on 04/09 due to PT IN HPD CUSTODY, HOMELESS ANS DAILY OPIATE USER. PT HAS A UROSTOMY, MISSING BAG. PT COMPLAINT OF BILATERAL FLANK PAIN. PT REPORTS SHE WAS AT [facility] 2 DAYS AGO per sales driver. Upon evaluation and assessment, pt has been admitted for acute hypokalemia, lactic acidosis, and acute cystitis?with hematuria.? T/w met with pt in ED17 to discuss substance use. Pt irritable, visibly restless, actively vomiting. Pt reports using heroin, IV, 2-3 bundles daily, last use yesterday. Pt also reports IV cocaine use. Denies other substances. Pt reports hx methadone and Suboxone, prefers methadone for withdrawal symptoms. COWS score 17.? Case discussed with Shi Rojas APRN as well as hospitalist. Will continue to follow.?
--- NOTE | 2021-04-10 11:41 | MHC.CM.PN ---
Addendum entered by Jessica Fulton 04/10/21 11:44: Patient is listed as self-pay. Financial counselors have already been asked to look into patient's [facility]. Original Note: Attempted to meet with patient in regards to discharge planning. Patient is currently sleeping and in custody of [facility]. Will attempt to meet again. Continue to monitor for d/c needs.
--- NOTE | 2021-04-10 17:11 | HO.ADDICT_ITS ---
History of Present Illness Date of Service: 04/10/2021 Chief Complaint: Hypokalemia, UTI Reason for Consult: opioid use disorder acute withdrawal Requesting physician: Maria Guadalupe Kincaid Discussed with referring provider: Yes Sources of Information: patient interviewed and chart reviewed HPI Narrative: Patient is a 36 year old female with history of cystoscopy and ne phrectomy presents to the hospital with UTI. It appears she somehow lost her urostomy bag at some point. Noted to be quite combative in ED, resistant to care. Reporting opioid and cocaine use. At least 2-3 bundles QD IV. Seen by Recovery Support RN while in ED COW score noted to be 16 at that time. Currently in police custody. 30mg of methadone ordered while in ED with good effect. Pt re-evaluated by this news writer about 1645 and noted to be more comfortable, still reporting anxiety and pain all over , noted to be restless. Does report history of MOUD including methadone and suboxone. Unclear when last time in treatment was. States it was last time I was in detox . Medical Evaluation Reviewed: Yes Personal & Social History: currently homeless. In police custody at this time Review of Systems Constitutional: Reports body ache(s), Reports chills and Reports malaise Diagnostics Vital Signs (24Hr): Vital Signs - 24 hr 04/09/21 19:08 04/09/21 20:09 04/09/21 22:24 Temperature 98.3 F 97.9 F 97.9 F Pulse Rate 66 56 56 Respiratory Rate 16 22 H 16 Blood Pressure 115/58 L 144/83 H 97/51 L Pulse Oximetry 97 96 94 04/09/21 23:29 04/10/21 00:11 04/10/21 00:49 Temperature Pulse Rate 56 91 65 Respiratory Rate 9 L 16 13 Blood Pressure 108/65 128/89 102/59 L Pulse Oximetry 98 98 100 04/10/21 02:43 04/10/21 05:18 04/10/21 06:44 Temperature 97.8 F Pulse Rate 62 66 61 Respiratory Rate 15 17 14 Blood Pressure 100/66 97/56 L 103/80 Pulse Oximetry 100 99 97 04/10/21 16:00 Temperature 98.8 F Pulse Rate 60 Respiratory Rate 14 Blood Pressure 121/80 Pulse Oximetry 100 Body Mass Index 24.5 Labs Results: 04/09/21 21:43 04/09/21 21:37 Labs: Laboratory Results - last 48 hr 04/09/21 04/09/21 04/09/21 21:37 21:43 21:43 WBC 8.3 RBC 3.52 L Hgb 10.3 L Hct 31.9 L MCV 90.6 MCH 29.3 MCHC 32.3 RDW 13.7 Plt Count 295 MPV 9.4 Immature Gran % (Auto) 0.2 Neut % (Auto) 64.9 Lymph % (Auto) 26.2 [place] % (Auto) 6.6 Eos % (Auto) 1.9 Baso % (Auto) 0.2 Lymph # (Auto) 2.2 [place] # (Auto) 0.6 Eos # (Auto) 0.2 Baso # (Auto) 0.0 Abs Immat Gran (auto) 0.02 Absolute Neuts (auto) 5.4 Absolute Nucleated RBC 0.000 Nucleated RBC % (auto) 0.0 PT 11.5 INR 1.0 APTT 33.6 Sodium 139 Potassium 2.5 L* Chloride 92 L Carbon Dioxide 35 H Anion Gap 15 BUN 27 H Creatinine 0.90 Estim Creat Clear Calc 72.6 Estimated GFR > 60 Random Glucose 158 H Lactic Acid Lactic Acid Fup @ 2Hr Calcium 9.1 Magnesium 2.1 Total Bilirubin 0.4 Direct Bilirubin 0.2 AST 24 ALT 13 Alkaline Phosphatase 78 Total Protein 6.9 Albumin 3.5 Lipase 13 Beta HCG, Quant < 2 Urine Color Urine Appearance Urine pH Ur Specific [place] Urine Protein Urine Glucose (UA) Urine Ketones Urine Blood Urine Nitrite Ur Leukocyte Esterase Urine RBC Urine WBC Ur Squamous Epith Cells Urine Bacteria Urine Mucus Urine Opiates Screen Ur Barbiturates Screen Ur Phencyclidine Scrn Ur Amphetamines Screen U Benzodiazepines Scrn Urine Cocaine Screen U Marijuana (THC) Screen COVID-19 (YASMIN) COVID-19 Clin Com 04/09/21 04/09/21 04/09/21 21:43 21:44 21:44 WBC RBC Hgb Hct MCV MCH MCHC RDW Plt Count MPV Immature Gran % (Auto) Neut % (Auto) Lymph % (Auto) [place] % (Auto) Eos % (Auto) Baso % (Auto) Lymph # (Auto) [place] # (Auto) Eos # (Auto) Baso # (Auto) Abs Immat Gran (auto) Absolute Neuts (auto) Absolute Nucleated RBC Nucleated RBC % (auto) PT INR APTT Sodium Potassium Chloride Carbon Dioxide Anion Gap BUN Creatinine Estim Creat Clear Calc Estimated GFR Random Glucose Lactic Acid 2.8 H* Lactic Acid Fup @ 2Hr Calcium Magnesium Total Bilirubin Direct Bilirubin AST ALT Alkaline Phosphatase Total Protein Albumin Lipase Beta HCG, Quant Urine Color YELLOW Urine Appearance CLOUDY Urine pH 7.5 Ur Specific [place] 1.015 Urine Protein 2+ H Urine Glucose (UA) NEG Urine Ketones NEG Urine Blood 2+ H Urine Nitrite NEG Ur Leukocyte Esterase 2+ H Urine RBC 5-9 H Urine WBC 10-14 H Ur Squamous Epith Cells 1+ Urine Bacteria 4+ Urine Mucus 2+ Urine Opiates Screen Ur Barbiturates Screen Ur Phencyclidine Scrn Ur Amphetamines Screen U Benzodiazepines Scrn Urine Cocaine Screen U Marijuana (THC) Screen COVID-19 (YASMIN) Negative COVID-19 Clin Com See Note 04/09/21 04/10/21 21:44 02:54 WBC RBC Hgb Hct MCV MCH MCHC RDW Plt Count MPV Immature Gran % (Auto) Neut % (Auto) Lymph % (Auto) [place] % (Auto) Eos % (Auto) Baso % (Auto) Lymph # (Auto) [place] # (Auto) Eos # (Auto) Baso # (Auto) Abs Immat Gran (auto) Absolute Neuts (auto) Absolute Nucleated RBC Nucleated RBC % (auto) PT INR APTT Sodium Potassium Chloride Carbon Dioxide Anion Gap BUN Creatinine Estim Creat Clear Calc Estimated GFR Random Glucose Lactic Acid Lactic Acid Fup @ 2Hr 1.1 Calcium Magnesium Total Bilirubin Direct Bilirubin AST ALT Alkaline Phosphatase Total Protein Albumin Lipase Beta HCG, Quant Urine Color Urine Appearance Urine pH Ur Specific [place] Urine Protein Urine Glucose (UA) Urine Ketones Urine Blood Urine Nitrite Ur Leukocyte Esterase Urine RBC Urine WBC Ur Squamous Epith Cells Urine Bacteria Urine Mucus Urine Opiates Screen POSITIVE H Ur Barbiturates Screen Not Detected Ur Phencyclidine Scrn Not Detected Ur Amphetamines Screen Not Detected U Benzodiazepines Scrn Not Detected Urine Cocaine Screen POSITIVE H U Marijuana (THC) Screen Not Detected COVID-19 (YASMIN) COVID-19 Clin Com Imaging Radiology Impressions: ITS Impressions Abdomen/Pelvis CT 04/09/21 19:59 IMPRESSION: Status post cystectomy with urostomy. Absent right kidney. Enlarged left kidney. No acute abnormality of the abdomen or pelvis. Chest X-Ray 04/10/21 00:00 IMPRESSION: No pneumothorax seen after multiple attempts at bilateral central lines Mental Status Exam Mental Status Exam Patient Appearance: Unkempt Level of Consciousness: Awake, Appropriate and Alert Patient Behavior: Appropriate Mood Description: Anxious Affect Description: Anxious Ability to Follow Directions: Good Speech Pattern: Clear Thought Process: Linear Thought Content: positive for Perseveration (next dose of methadone ) Judgement: Fair Medications Medications Current Medications Generic Name Dose Route Start Last Admin Trade Name Freq PRN Reason Stop Dose Admin Acetaminophen 650 mg 04/10/21 05:00 Acetaminophen 325 Mg Tablet PO Q6H PRN Pain, Mild (Pain Scale 1-3) Docusate Sodium 100 mg 04/10/21 05:00 Docusate Sodium 100 Mg Capsule PO DAILY PRN Constipation Enoxaparin Sodium 40 mg 04/10/21 06:00 04/10/21 08:57 Enoxaparin Sodium 40 Mg/0.4 Ml Syringe SUBCUT Not Given Q24H STACIE Meropenem 1 gm/ Sodium 100 mls @ 100 mls/hr 04/10/21 09:00 04/10/21 16:53 Chloride IV 100 mls/hr Q8H STACIE Administration Methadone HCl 5 mg 04/10/21 18:00 Methadone Hcl 1 Mg/0.1 Ml Oral.Conc PO 04/10/21 18:01 ONCE ONE Methadone HCl 35 mg 04/11/21 09:00 Methadone Hcl 1 Mg/0.1 Ml Oral.Conc PO DAILY STACIE Nicotine 21 mg 04/10/21 09:00 04/10/21 08:58 Nicotine 21 Mg Patch.Td24 TRANSDERMA Not Given DAILY [facility] Ondansetron HCl 4 mg 04/10/21 05:00 Ondansetron Hcl 4 Mg/2 Ml Vial IVPUSH Q8H PRN Nausea and Vomiting Oxycodone HCl 5 mg 04/10/21 05:43 04/10/21 16:53 Oxycodone Hcl Immed Release 5 Mg Tablet PO 5 mg Q4H PRN Administration Pain, Severe (Pain Scale 7-10) Pharmacy Consult 1 each 04/09/21 20:38 Consult Rx Perform Med Rec MISCELLANE ONCE PRN Consult order Allergies Allergies Allergy/AdvReac Type Severity Reaction Status Date / Time morphine [Morphine] Allergy Severe TROUBLE Verified 04/09/21 19:16 BREATHING Sulfa (Sulfonamide Allergy Mild HIVES Verified 04/09/21 19:16 Antibiotics) Assessment & Plan Assessment & Plan (1) Opioid use disorder: Status: Acute Code(s): F11.99 - Opioid use, unspecified with unspecified opioid-induced disorder Recommendations: -additional 5mg methadone ordered for tonight -35mg QD methadone ordered for the morning -HIV with next lab draw -EKG during dose titration (if patient is compliant) Greater than 50% of the session was spent on counseling and/or coordination of care [facility] Surgical History Surgical History History of nephrectomy, right History of total cystectomy History of urostomy Social History Social History Household Members: None Housing: Homeless Do you presently have visiting nurse or other home services: No Patient Tobacco Use Status: Current everyday Tobacco user Cigarette Packs Per Day: 1 Cigarettes Per Day: 20.0 Years Smoked: 15 Patient Interested in Nicotine Replacement: No Patient Given Instructions on How to Stop Smoking: No Second Hand Smoke Exposure: No Use of substances other than those prescribed or required for medical reasons: Yes Substance Use Type: Heroin Substance Use Frequency: Daily Last Used Substance: Just Prior to Admission Currently Displaying Signs/Symptoms of Drug Intoxication Withdrawal: No Any prior treatment program specific to substance use: Yes Advance Directives: No Advance Directives Information Provided: Yes Do you have thoughts of harming others: None Do you have a plan to hurt others: No Plan Recently lost weight without trying: Yes How much weight loss: Unsure Eating poorly because of decreased appetite: No Nutrition screen score: 4 Nutrition Risks: Emaciation/Cachexia
[2021-04-11] VITALS: BP 119/77; PULSE 54; RESP 18; TEMP 37.2; O2SAT 100
--- NOTE | 2021-04-11 02:27 | PC.NURSE ---
At midnight assessment pt had pulled out her IV. Pt is refusing to have new IV put in, IV antibiotic at [address] Morrison notified, up to bedside to speak with patient. PO antibiotic ordered, pt agreeable to take.
[2021-04-11 03:42] VITALS: BP 117/71; PULSE 52; RESP 18; TEMP 37; O2SAT 99
[2021-04-11 07:10] VITALS: BP 110/65; PULSE 54; RESP 18; TEMP 36.1; O2SAT 98
[2021-04-11] MEDS: Nicotine 21 MG PATCH.TD24 TRANSDERMA (07:59)
--- NOTE | 2021-04-11 09:12 | MHC.RECOVRN ---
T/w met with pt to f/u after receiving 35 mg methadone yesterday. Pt reports methadone alleviated some symptoms of withdrawal but still reports body aches and states I don't feel good. Pt appears flushed, pupils dilated, teary. COWS score 8. Pt difficult to engage to state other symptoms. T/w inquired about pts IV, pt states It fell out. T/w encourgaed pt to obtain the care and IV antibiotics needed, pt did not respond. Case discussed with Shi Rojas APRN, as well as pts RN.
[2021-04-11 09:50] LABS: MANUAL DIFF FLAG NO
[2021-04-11 09:53] LABS: Basophils Percent Auto 0.1 % (0-2); Eosinophils Percent Auto 0.1 % (0-4); Hematocrit 34.8 % (37-47); Imm Gran Abs Auto 0.02 X10*3/uL (0.00-0.03); Imm Gran Pct Auto 0.3 % (0.0-0.4); Lymphocytes Absolute Auto 1.8 X10*3/uL (1.2-4.9); Lymphocytes Percent Auto 25.7 % (20-40); Mean Corpuscular HGB Conc 31.6 g/dl (31.0-35.0); Mean Corpuscular Hemoglobin 28.6 pg (27.0-33.0); Mean Corpuscular Volume 90.6 fL (80-98); Mean Platelet Volume 9.6 fL (9.4-12.3); Monocytes Absolute Auto 0.4 X10*3/uL (0.1-1.2); Monocytes Percent Auto 6.1 % (2-11); Neutrophils Absolute Auto 4.9 X10*3/uL (2.0-8.3); Neutrophils Percent Auto 67.7 % (45-73); Platelet Count 325 X10*3/uL (160-400); Red Blood Count 3.84 X10*6/uL (4.20-5.50); Red Cell Distribution Width 13.9 % (11.0-16.0); White Blood Count 7.2 X10*3/uL (4.8-10.8)
[2021-04-11 10:14] LABS: Anion Gap 11 (12-20); Blood Urea Nitrogen 21 mg/dL (9-16); Calcium 9.1 mg/dL (8.4-10.2); Carbon Dioxide 29 mmol/L (22-29); Chloride 105 mmol/L (96-108); Creatinine Clr Calc Pharmacy 96.1; Estimated Glomerular Filt Rate > 60; Glucose Random 140 mg/dL (60-115); Sodium 142 mmol/L (135-145)
--- NOTE | 2021-04-11 10:21 | MHC.CM.PN ---
ADDICTION MEDICINE is involved. Patient is presently in police custody, homeless, no PCP, no Contacts, Combative, History of Methadone & Suboxone from last Detox admission. CM has initiated and will follow for dc planning.
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
[2021-04-11] MEDS: HYDROmorphone HCl 2 MG TABLET 1 MG PO (11:17)
[2021-04-11] MEDS: Potassium Chloride Packet 20 MEQ PACKET 40 MEQ PO (11:18)
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
--- NOTE | 2021-04-11 13:23 | PC.NURSE ---
Patient given 1mg PO Dilaudid. Patient appeared to have swallowed medication. Patient then noticed by police that she had spit out and crushed medication and was attempting to snort it off the table. Police, this RN, and a [employer] CA[employer] intervened. Table cleaned off. Patient education given. Dr. Kincaid made aware.
== END 2021-04-11 13:18 | disposition other institution (70) | DRG 690 ==
LOC: HO.ED 23:44 → HO.EDOVER 04-10 04:26 → HO.IMC 04-10 14:46
PROVIDERS: Physician Assistant; Admitting Provider Internal Medicine; Emergency Provider Student in an Organized Health Care Education/Training Program; Visit Provider Student in an Organized Health Care Education/Training Program
DX: N39.0 Urinary tract infection, site not specified (principal); F11.20 Opioid dependence, uncomplicated; R78.81 Bacteremia; E87.6 Hypokalemia; F17.210 Nicotine dependence, cigarettes, uncomplicated; Q64.70 Unspecified congenital malformation of bladder and urethra; Z71.6 Tobacco abuse counseling; Z88.2 Allergy status to sulfonamides; Z88.5 Allergy status to narcotic agent; Z20.822 Contact with and (suspected) exposure to COVID-19; B96.4 Proteus (mirabilis) (morganii) as the cause of diseases classified elsewhere; Z59.0 Homelessness; Z93.6 Other artificial openings of urinary tract status; Z90.5 Acquired absence of kidney
CPT/HCPCS: 36415; 71045; 74176; 80048; 80076; 80307; 81001; 81003; 83605; 83690; 83735; 84702; 85025; 85610; 85730; 87040; 87077; 87086; 87088; 87186; 87205; 87635; 99285; J0696; J1170; J2185

== ENCOUNTER 2021-06-26 14:33 | Emergency (ER) | payer MEDICAID, SELFPAY ==
--- NOTE | 2021-06-26 | ECG_ITS ---
Test Reason : CHEST PAIN Blood Pressure : / mmHG Vent. Rate : 135 BPM Atrial Rate : 135 BPM P-R Int : 150 ms QRS Dur : 072 ms QT Int : 264 ms P-R-T Axes : 000 069 -67 degrees QTc Int : 396 ms Sinus tachycardia T wave abnormality, consider inferior ischemia T wave abnormality, consider anterior ischemia Abnormal ECG When compared with ECG of 11-JAN-2019 11:52, Vent. rate has increased BY 77 BPM Non-specific change in ST segment in Inferior leads T wave inversion now evident in Inferior leads T wave inversion more evident in Anterior leads Referred By: Generic ED Physician Electronically Signed By:
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
[2021-06-26 14:45] VITALS: PULSE 146; RESP 20; TEMP 38.7; O2SAT 93; BMI 13.2
--- NOTE | 2021-06-26 16:17 | PC.NURSE ---
PATIENT CAME IN TO ROOM ,PATIENT REFUSED TO HAVE VITALS TAKEN ,REFUSED TO BE PUT ON GLOBAL IMPLEMENTATION MANAGER AND TO BE REGULATORY INTERNSHIP ,RN GENOVEVA IS AWARE .
[2021-06-26 16:40] VITALS: BP 115/86; PULSE 106; RESP 15; TEMP 37.3; O2SAT 100
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
--- NOTE | 2021-06-26 17:05 | PC.NURSE ---
Patient finally allow me to take her vitals ,and change into hospital attire .
[2021-06-26] MEDS: HYDROmorphone HCl 1 MG/ML SYRINGE IM ×2 (17:18→18:51)
[2021-06-26 18:51] VITALS: BP 113/76; PULSE 100; RESP 20; O2SAT 100
--- NOTE | 2021-06-26 18:55 | PC.NURSE ---
Pt medicated per MAR.
[2021-06-26 20:00] VITALS: BP 113/77; PULSE 105; RESP 15; TEMP 37.8; O2SAT 99
[2021-06-26 20:54] VITALS: TEMP 37.5
--- NOTE | 2021-06-26 21:01 | PC.NURSE ---
UA obtained and sent.
--- NOTE | 2021-06-26 21:01 | PC.NURSE ---
UA obtained and sent. Pt medicated per DEC. Plan for taxi transport to requested address.
[2021-06-26 21:04] LABS: Glucose Urine UA NEG (NEG); Leukocyte Esterase Urine 1+ (NEG); Nitrite Urine NEG (NEG); PH 6.5 (5.0-8.0); Specific Gravity - Urine <= 1.005 (1.005-1.025); UACC Culture Trigger YES; Urine Blood NEG (NEG); Urine Ketones NEG (NEG); Urine Protein 1+ MG/DL (NEG-TRACE)
[2021-06-26 21:08] LABS: Appearance Urine HAZY; Color Urine YELLOW
[2021-06-26 21:13] LABS: Bacteria Urine 1+ /LPF; RBC Urine 0 /HPF (0); Squamous Epithelial Cell Urine 1+ /LPF
--- NOTE | 2021-06-26 21:31 | PC.NURSE ---
Pt noted to be very upset upon finding that discharge instructions were available. Pt states I'm in pain, I can't leave! They always admit me! They didn't even check my labs! I don't have anyone to call for a ride! MD and lumber tailer at bedside. lumber tailer finding a [employer] for pt. Pt remains frustrated with DC, states she is unable to fill her RX. Pt provided with new clothes and shoes as she came in without clothes. This RN at bedside assisting pt into clothes. Pt provided with DC paperwork and assisted into a [employer] but remote sensing technologist.
== END 2021-06-26 21:34 | disposition home or self-care (01) ==
PROVIDERS: Emergency Provider Emergency Medicine Emergency Medical Services
DX: S09.90XA Unspecified injury of head, initial encounter (principal); S16.1XXA Strain of muscle, fascia and tendon at neck level, initial encounter; N39.0 Urinary tract infection, site not specified; F11.10 Opioid abuse, uncomplicated; G44.309 Post-traumatic headache, unspecified, not intractable; R07.9 Chest pain, unspecified; Y04.8XXA Assault by other bodily force, initial encounter; Y93.9 Activity, unspecified; Y92.9 Unspecified place or not applicable; Y99.9 Unspecified external cause status; F12.10 Cannabis abuse, uncomplicated; Z71.6 Tobacco abuse counseling; Z79.899 Other long term (current) drug therapy
CPT/HCPCS: 70450; 71045; 72125; 73100; 81001; 87086; 87088; 87186; 93005; 96372; 99284; J1170

== ENCOUNTER 2021-07-07 10:55 | Inpatient (IN) | payer MEDICAID, SELFPAY ==
--- NOTE | ~2021-07-07 | CT_ITS ---
EXAMINATION: CT ABDOMEN AND PELVIS WITHOUT CONTRAST CLINICAL INFORMATION: abdominal pain . COMPARISON: 04/09/2021. TECHNIQUE: Multidetector volumetric imaging was performed from the superior aspect of the liver through the pubic symphysis without contrast per renal stone protocol. Sagittal and coronal reformatted images were obtained on the technologist workstation. This CT examination was performed using dose optimization techniques as appropriate, variously including the following: *Automated exposure control *Adjustment of mA and/or kV according to patient size (this includes techniques or standardized protocols for targeted exams where dose is matched to indication/reason for exam; i.e. extremities or head) *Use of iterative reconstruction technique DLP: 161 mGy-cm. FINDINGS: The examination is very limited due to the lack of any significant fat to provide contrast between individual structures. LUNG BASES: The visualized lung bases are unremarkable. LIVER, GALLBLADDER, BILIARY TREE: The non-contrast liver is normal in size, shape, and attenuation. No focal hepatic lesion or biliary ductal dilatation is present. The gallbladder surgically absent. PANCREAS: Not well assessed SPLEEN: Unremarkable. ADRENAL GLANDS: Unremarkable. KIDNEYS AND URETERS: The right kidney is not visualized and presumably surgically absent. There is a elongated left kidney that is difficult to delineate from adjacent structures. I do not appreciate any obvious hydronephrosis. BLADDER: Bladder is surgically absent with likely decompressed ileostomy in the right lower quadrant better seen on prior studies GASTROINTESTINAL TRACT: Postoperative changes in the bowel. No obvious obstruction. Stool and air seen throughout the colon ABDOMINAL WALL: Limited evaluation due to lack of any significant fat LYMPHOVASCULAR STRUCTURES: No lymphadenopathy. The aorta is unremarkable.. PELVIC VISCERA: Not well assessed OSSEUS STRUCTURES: Unremarkable. CT/CT abdomen pelvis wo con IMPRESSION: The examination is limited due to the lack of significant intra-abdominal fat to provide contrast between individual structures. The right kidney is presumably surgically absent with compensatory hypertrophy of the left kidney. No obvious hydronephrosis was able to be appreciated. 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
[2021-07-07 12:25] VITALS: BP 139/116; RESP 16; TEMP 36.1; BMI 12.7
--- NOTE | 2021-07-07 15:50 | ED_ITS ---
HPI - Nausea/Vomiting/Diarrhea General Chief complaint: Nausea/Vomiting/Diarrhea Stated complaint: VOMITING Time Seen by Provider: 07/07/21 15:46 Related Data Home Medications Medication Instructions Recorded Confirmed No Known Home Meds 07/08/21 07/08/21 Allergies Allergy/AdvReac Type Severity Reaction Status Date / Time morphine [Morphine] Allergy Severe TROUBLE Verified 04/09/21 19:16 BREATHING Sulfa (Sulfonamide Allergy Mild HIVES Verified 04/09/21 19:16 Antibiotics) [facility] Past Medical History Medical History (Updated 07/08/21 @ 14:59 by Shi Rojas CNP) Opioid use disorder Surgical History (Updated 07/08/21 @ 10:23 by Anya Grayson MD) History of nephrectomy, right History of total cystectomy History of urostomy Social History Social History Household Members: Unknown / Unable to assess Housing: Unknown / Unable to assess Do you presently have visiting nurse or other home services: No Unable to assess alcohol history related to: Refusing to respond Patient Tobacco Use Status: Current everyday Tobacco user Tobacco use type: Cigarette Cigarette Packs Per Day: 1 Years Smoked: 15 Smoked in Last 30 Days: Yes Second Hand Smoke Exposure: No Use of substances other than those prescribed or required for medical reasons: Yes Substance Use Type: Crack/Cocaine, Heroin and IV Drugs Substance Use Frequency: Chronic Longstanding Last Used Substance: Just Prior to Admission Currently Displaying Signs/Symptoms of Drug Intoxication Withdrawal: Yes Any prior treatment program specific to substance use: Yes Have you been hit, kicked, punched, or otherwise hurt by someone within the past year? If so, by whom?: No Do you feel safe in your current relationship?: No Current Relationship Is there a partner from a previous relationship who is making you feel unsafe now?: No Are you made to feel afraid or neglected: No Advance Directives: No Do you have thoughts of harming others: None Do you have a plan to hurt others: No Plan Recently lost weight without trying: Unsure Eating poorly because of decreased appetite: Yes Nutrition Risks: Anorexia Patient : No : No Poor oral hygiene: No service: No Current occupational status: unemployed Physical Exam Vital Signs: Vital Signs: Last Vital Signs Temp 98.0 F 07/08/21 11:53 Pulse 85 07/08/21 11:53 Resp 17 07/08/21 11:53 BP 114/76 07/08/21 11:53 Pulse Ox 100 07/08/21 11:53 Body Mass Index 12.7 Course Course Course Narrative: 15:50pm - 36-year-old female presenting to the ED with complaints of nausea/vomiting with abdominal cramping for the past few days worse today. Reports generalized subjective fevers and chills. She reports foul smelling urine. She is currently homeless and covered in urine and feces. On exam patient is alert and oriented x3. Not in any acute distress. Although has very poor hygiene. Patient mildly hypertensive at 139/116. Otherwise all other vitals are within normal limits. She has tenderness palpation mildly diffusely on the abdomen. No CVA tenderness is noted. Patient was sent back to the waiting room for further evaluation treatment in the main ED labs along with a UA ordered at this time. MDM - Nausea/Vomiting/Diarrhea Lab Data Result diagrams: 07/08/21 13:27 07/08/21 13:27 Labs: Lab Results 07/07/21 07/07/21 07/07/21 Range/Units 20:50 20:50 20:50 WBC 21.8 H (4.8-10.8) X10*3/uL RBC 4.57 (4.20-5.50) X10*6/uL Hgb 11.6 L (12.0-16.0) g/dl Hct 37.1 (37-47) % MCV 81.2 (80-98) fL MCH 25.4 L (27.0-33.0) pg MCHC 31.3 (31.0-35.0) g/dl RDW 16.5 H (11.0-16.0) % Plt Count 1047 H* D (160-400) X10*3/uL MPV 9.1 L (9.4-12.3) fL Immature Gran % (Auto) 1.5 H (0.0-0.4) % Neut % (Auto) 84.1 H (45-73) % Lymph % (Auto) 10.0 L (20-40) % [place] % (Auto) 4.3 (2-11) % Eos % (Auto) 0.0 (0-4) % Baso % (Auto) 0.1 (0-2) % Lymph # (Auto) 2.2 (1.2-4.9) X10*3/uL [place] # (Auto) 0.9 (0.1-1.2) X10*3/uL Eos # (Auto) 0.0 (0.0-0.4) X10*3/uL Baso # (Auto) 0.0 (0.0-0.2) X10*3/uL Abs Immat Gran (auto) 0.32 H (0.00-0.03) X10*3/uL Absolute Neuts (auto) 18.3 H (2.0-8.3) X10*3/uL Absolute Nucleated RBC 0.000 (0.0-0.012) X10*3/uL Nucleated RBC % (auto) 0.0 (0.0-0.2) /100WBC PT 12.4 (9.9-13.0) SEC INR 1.1 (0.9-1.1) Sodium 131 L (135-145) mmol/L Potassium 5.6 H D (3.3-5.1) mmol/L Chloride 103 (96-108) mmol/L Carbon Dioxide 20 L (22-29) mmol/L Anion Gap 14 (12-20) BUN 60 H D (9-16) mg/dL Creatinine 0.89 (0.5-1.4) mg/dL Estim Creat Clear Calc 42.7 Estimated GFR > 60 Random Glucose 79 (60-115) mg/dL Calcium 10.1 D (8.4-10.2) mg/dL Magnesium 2.3 (1.6-2.6) mg/dL Total Bilirubin 0.4 (0.0-1.0) mg/dL AST 27 (5-31) U/L ALT 39 H (0-31) U/L Alkaline Phosphatase 149 H D (39-117) U/L Total Protein 9.5 H D (6.5-8.0) g/dL Albumin 3.2 L (3.5-5.0) g/dL Lipase 35 (8-78) U/L Beta HCG, Quant mIU/mL Ethyl Alcohol mg/dL 07/07/21 07/07/21 Range/Units 20:50 20:50 WBC (4.8-10.8) X10*3/uL RBC (4.20-5.50) X10*6/uL Hgb (12.0-16.0) g/dl Hct (37-47) % MCV (80-98) fL MCH (27.0-33.0) pg MCHC (31.0-35.0) g/dl RDW (11.0-16.0) % Plt Count (160-400) X10*3/uL MPV (9.4-12.3) fL Immature Gran % (Auto) (0.0-0.4) % Neut % (Auto) (45-73) % Lymph % (Auto) (20-40) % [place] % (Auto) (2-11) % Eos % (Auto) (0-4) % Baso % (Auto) (0-2) % Lymph # (Auto) (1.2-4.9) X10*3/uL [place] # (Auto) (0.1-1.2) X10*3/uL Eos # (Auto) (0.0-0.4) X10*3/uL Baso # (Auto) (0.0-0.2) X10*3/uL Abs Immat Gran (auto) (0.00-0.03) X10*3/uL Absolute Neuts (auto) (2.0-8.3) X10*3/uL Absolute Nucleated RBC (0.0-0.012) X10*3/uL Nucleated RBC % (auto) (0.0-0.2) /100WBC PT (9.9-13.0) SEC INR (0.9-1.1) Sodium (135-145) mmol/L Potassium (3.3-5.1) mmol/L Chloride (96-108) mmol/L Carbon Dioxide (22-29) mmol/L Anion Gap (12-20) BUN (9-16) mg/dL Creatinine (0.5-1.4) mg/dL Estim Creat Clear Calc Estimated GFR Random Glucose (60-115) mg/dL Calcium (8.4-10.2) mg/dL Magnesium (1.6-2.6) mg/dL Total Bilirubin (0.0-1.0) mg/dL AST (5-31) U/L ALT (0-31) U/L Alkaline Phosphatase (39-117) U/L Total Protein (6.5-8.0) g/dL Albumin (3.5-5.0) g/dL Lipase (8-78) U/L Beta HCG, Quant < 2 mIU/mL Ethyl Alcohol < 10 mg/dL Discharge Plan Discharge Clinical Impression: Acute dehydration, Thrombocytosis, Leukocytosis, Renal failure Patient Disposition: Admitted As Inpatient Discharge Date/Time: 07/08/21 11:00
[2021-07-07 18:51] VITALS: BP 108/65; PULSE 120; RESP 16
--- NOTE | 2021-07-07 20:10 | ED.GENADULT ---
HPI - General Adult General Chief complaint: Nausea/Vomiting/Diarrhea Stated complaint: VOMITING Time Seen by Provider: 07/07/21 15:46 Source: patient Limitations: no limitations History of Present Illness HPI narrative: 36 yo female with hx of IVDA presented c/o nausea/vomiting /diarrhea.She is current homeless Onset (ago): day(s) (1) Severity: mild Relieving factors: none Exacerbating factors: none Related Data Previous Rx's Medication Instructions Recorded cefuroxime axetil 500 mg tablet 500 mg PO Q12H 10 Days #20 tab 04/11/21 cefuroxime axetil 500 mg tablet 500 mg PO Q12H 7 Days #14 tab 06/26/21 Allergies Allergy/AdvReac Type Severity Reaction Status Date / Time morphine [Morphine] Allergy Severe TROUBLE Verified 04/09/21 19:16 BREATHING Sulfa (Sulfonamide Allergy Mild HIVES Verified 04/09/21 19:16 Antibiotics) Review of Systems Review of Systems: Yes all other systems are reviewed and are negative Constitutional: Constitutional: Reports no additional constitutional complaints Cardiovascular: Cardiovascular: Reports no additional cardiovascular complaints Respiratory: Respiratory: Reports no additional respiratory complaints Gastrointestinal: Gastrointestinal: Reports no additional gastrointestinal complaints and Reports vomiting Genitourinary: Genitourinary: Reports other Musculoskeletal: Musculoskeletal: Reports no additional musculoskeletal complaints Neurologic: Reports system reviewed and no additional complaints, except as documented PMFSH Past Medical History Medical History Opioid use disorder Surgical History History of nephrectomy, right History of total cystectomy History of urostomy Social History Social History Household Members: None Housing: Homeless Do you presently have visiting nurse or other home services: No Patient Tobacco Use Status: Current everyday Tobacco user Cigarette Packs Per Day: 1 Cigarettes Per Day: 20.0 Years Smoked: 15 Second Hand Smoke Exposure: No Substance Use Type: Heroin Advance Directives: No service: No Current occupational status: unemployed Physical Exam Vital Signs: Vital Signs: Last Vital Signs Temp 97 F 07/07/21 12:25 Pulse 120 H 07/07/21 18:51 Resp 16 07/07/21 18:51 BP 108/65 07/07/21 18:51 Body Mass Index 12.7 Const: General: cooperative (cachectic) Orientation/consciousness: oriented to person, oriented to place, oriented to time and patient oriented x3 HENMT: Head: Yes normocephalic Face and sinus: Yes normal facial exam Mouth: Normal oral and palatal mucosa present Neck: Neck: Yes normal visual inspection and Yes full ROM Thyroid: Thyroid normal Chest: Chest palpation & inspection: normal inspection of the chest Resp: Effort & Inspection: normal respiratory effort Auscultation: clear to auscultation bilaterally Cardio: Jugular venous distension: no JVD Rate: regular rate Rhythm: regular rhythm GI: Inspection: Yes normal to inspection Palpation (GI): Soft to palpation Skin: General skin exam: no rashes or lesions noted and elasticity normal Rashes: no rashes Neuro: General: oriented to person, oriented to place, oriented to time and patient oriented x3 Course Reevaluation(s) Reevaluation #1: remine stable hemodinamically,labs shows thrombocytosis,leukocytosis,I spoke with math and science instructor Dr Grayson no intervention needded Tonight. Will start the pt with iv AB because at risk of bacteremia because IVDA report given to Hospitalist Dr Luo Medical Decision Making Lab Data Result diagrams: 07/07/21 20:50 07/07/21 20:50 Labs: Lab Results 07/07/21 07/07/21 07/07/21 Range/Units 20:50 20:50 20:50 WBC 21.8 H (4.8-10.8) X10*3/uL RBC 4.57 (4.20-5.50) X10*6/uL Hgb 11.6 L (12.0-16.0) g/dl Hct 37.1 (37-47) % MCV 81.2 (80-98) fL MCH 25.4 L (27.0-33.0) pg MCHC 31.3 (31.0-35.0) g/dl RDW 16.5 H (11.0-16.0) % Plt Count 1047 H* D (160-400) X10*3/uL MPV 9.1 L (9.4-12.3) fL Immature Gran % (Auto) 1.5 H (0.0-0.4) % Neut % (Auto) 84.1 H (45-73) % Lymph % (Auto) 10.0 L (20-40) % [place] % (Auto) 4.3 (2-11) % Eos % (Auto) 0.0 (0-4) % Baso % (Auto) 0.1 (0-2) % Lymph # (Auto) 2.2 (1.2-4.9) X10*3/uL [place] # (Auto) 0.9 (0.1-1.2) X10*3/uL Eos # (Auto) 0.0 (0.0-0.4) X10*3/uL Baso # (Auto) 0.0 (0.0-0.2) X10*3/uL Abs Immat Gran (auto) 0.32 H (0.00-0.03) X10*3/uL Absolute Neuts (auto) 18.3 H (2.0-8.3) X10*3/uL Absolute Nucleated RBC 0.000 (0.0-0.012) X10*3/uL Nucleated RBC % (auto) 0.0 (0.0-0.2) /100WBC PT 12.4 (9.9-13.0) SEC INR 1.1 (0.9-1.1) Sodium 131 L (135-145) mmol/L Potassium 5.6 H D (3.3-5.1) mmol/L Chloride 103 (96-108) mmol/L Carbon Dioxide 20 L (22-29) mmol/L Anion Gap 14 (12-20) BUN 60 H D (9-16) mg/dL Creatinine 0.89 (0.5-1.4) mg/dL Estim Creat Clear Calc 42.7 Estimated GFR > 60 Random Glucose 79 (60-115) mg/dL Calcium 10.1 D (8.4-10.2) mg/dL Magnesium 2.3 (1.6-2.6) mg/dL Total Bilirubin 0.4 (0.0-1.0) mg/dL AST 27 (5-31) U/L ALT 39 H (0-31) U/L Alkaline Phosphatase 149 H D (39-117) U/L Total Protein 9.5 H D (6.5-8.0) g/dL Albumin 3.2 L (3.5-5.0) g/dL Lipase 35 (8-78) U/L Beta HCG, Quant mIU/mL Ethyl Alcohol mg/dL 07/07/21 07/07/21 Range/Units 20:50 20:50 WBC (4.8-10.8) X10*3/uL RBC (4.20-5.50) X10*6/uL Hgb (12.0-16.0) g/dl Hct (37-47) % MCV (80-98) fL MCH (27.0-33.0) pg MCHC (31.0-35.0) g/dl RDW (11.0-16.0) % Plt Count (160-400) X10*3/uL MPV (9.4-12.3) fL Immature Gran % (Auto) (0.0-0.4) % Neut % (Auto) (45-73) % Lymph % (Auto) (20-40) % [place] % (Auto) (2-11) % Eos % (Auto) (0-4) % Baso % (Auto) (0-2) % Lymph # (Auto) (1.2-4.9) X10*3/uL [place] # (Auto) (0.1-1.2) X10*3/uL Eos # (Auto) (0.0-0.4) X10*3/uL Baso # (Auto) (0.0-0.2) X10*3/uL Abs Immat Gran (auto) (0.00-0.03) X10*3/uL Absolute Neuts (auto) (2.0-8.3) X10*3/uL Absolute Nucleated RBC (0.0-0.012) X10*3/uL Nucleated RBC % (auto) (0.0-0.2) /100WBC PT (9.9-13.0) SEC INR (0.9-1.1) Sodium (135-145) mmol/L Potassium (3.3-5.1) mmol/L Chloride (96-108) mmol/L Carbon Dioxide (22-29) mmol/L Anion Gap (12-20) BUN (9-16) mg/dL Creatinine (0.5-1.4) mg/dL Estim Creat Clear Calc Estimated GFR Random Glucose (60-115) mg/dL Calcium (8.4-10.2) mg/dL Magnesium (1.6-2.6) mg/dL Total Bilirubin (0.0-1.0) mg/dL AST (5-31) U/L ALT (0-31) U/L Alkaline Phosphatase (39-117) U/L Total Protein (6.5-8.0) g/dL Albumin (3.5-5.0) g/dL Lipase (8-78) U/L Beta HCG, Quant < 2 mIU/mL Ethyl Alcohol < 10 mg/dL Discharge Plan Discharge Clinical Impression: Acute dehydration, Thrombocytosis, Leukocytosis, Renal failure Patient Disposition: Admitted As Inpatient
[2021-07-07 20:56] LABS: MANUAL DIFF FLAG NO
[2021-07-07] MEDS: ondansetron HCL 4 MG/2 ML VIAL IVPUSH (20:59)
[2021-07-07 21:02] LABS: Basophils Percent Auto 0.1 % (0-2); Hematocrit 37.1 % (37-47); Hemoglobin 11.6 g/dl (12.0-16.0); Imm Gran Abs Auto 0.32 X10*3/uL (0.00-0.03); Imm Gran Pct Auto 1.5 % (0.0-0.4); Lymphocytes Absolute Auto 2.2 X10*3/uL (1.2-4.9); Mean Corpuscular HGB Conc 31.3 g/dl (31.0-35.0); Mean Corpuscular Hemoglobin 25.4 pg (27.0-33.0); Mean Corpuscular Volume 81.2 fL (80-98); Mean Platelet Volume 9.1 fL (9.4-12.3); Monocytes Absolute Auto 0.9 X10*3/uL (0.1-1.2); Monocytes Percent Auto 4.3 % (2-11); Neutrophils Absolute Auto 18.3 X10*3/uL (2.0-8.3); Neutrophils Percent Auto 84.1 % (45-73); Red Blood Count 4.57 X10*6/uL (4.20-5.50); Red Cell Distribution Width 16.5 % (11.0-16.0); White Blood Count 21.8 X10*3/uL (4.8-10.8)
[2021-07-07 21:09] LABS: Ethanol < 10 mg/dL
[2021-07-07] MEDS: HYDROmorphone HCl 0.5 MG/0.5 ML SYRINGE IVPUSH (21:10)
[2021-07-07 21:11] LABS: INTERNATIONAL NORM RATIO 1.1 (0.9-1.1); Prothrombin Time 12.4 SEC (9.9-13.0)
[2021-07-07 21:13] LABS: Alanine Aminotransferase 39 U/L (0-31); Albumin Level 3.2 g/dL (3.5-5.0); Alkaline Phosphatase 149 U/L (39-117); Anion Gap 14 (12-20); Aspartate Amino Transferase 27 U/L (5-31); Bilirubin Total 0.4 mg/dL (0.0-1.0); Blood Urea Nitrogen 60 mg/dL (9-16); Calcium 10.1 mg/dL (8.4-10.2); Carbon Dioxide 20 mmol/L (22-29); Chloride 103 mmol/L (96-108); Creatinine Clr Calc Pharmacy 42.7; Estimated Glomerular Filt Rate > 60; Glucose Random 79 mg/dL (60-115); Lipase 35 U/L (8-78); Magnesium 2.3 mg/dL (1.6-2.6); Potassium 5.6 mmol/L (3.3-5.1); Sodium 131 mmol/L (135-145); Total Protein 9.5 g/dL (6.5-8.0)
[2021-07-07 21:21] LABS: HCG Quantitative < 2 mIU/mL
[2021-07-07 21:32] LABS: Platelet Count 1047 X10*3/uL (160-400)
[2021-07-07 23:57] VITALS: BP 138/94; PULSE 76; RESP 16; TEMP 36.6; O2SAT 100
--- NOTE | 2021-07-08 00:02 | P.HPHOSP_ITS ---
History of Present Illness Date of Service: 07/08/21 Chief Complaint: Nausea and vomiting 36-year-old female with a past medical history of substance abuse, heroin abuse, CKD, history of nephrectomy, history of bladder resection status post urostomy back; hep C, IV drug abuse; presented to the hospital with a chief complaint of not feeling well, nausea vomiting and abdominal discomfort. Patient is a poor historian. Reportedly patient has been not well over the past 3-4 days; not eating good; ER team mentioned the patient is homeless as well. Patient denies any chest pain palpitations lightheadedness or dizziness. Denies any numbness tingling or focal weakness. Patient reported that her urostomy bag full of 3-4 days ago. Review of all other systems is negative except mentioned above ER course: Per ER team patient urostomy leg was treatment; CT abdomen showed no acute intra-abdominal process but noted chronic absent kidney as well as a bladder. Patient noticed severe leukocytosis; urinalysis was pending. Empirically given cefepime. Also noted to have platelet count of 1047; discussed with Dr. Marlo cuevas who mentioned no acute intervention for tonight and will be evaluated in the morning. Patient denies any headaches numbness tingling or focal weakness. Denies any fever chills cough. COUNT INCLUDES THE [facility] Medical History Opioid use disorder Surgical History History of nephrectomy, right History of total cystectomy History of urostomy Social History Household Members: None Housing: Homeless Do you presently have visiting nurse or other home services: No Patient Tobacco Use Status: Current everyday Tobacco user Cigarette Packs Per Day: 1 Cigarettes Per Day: 20.0 Years Smoked: 15 Second Hand Smoke Exposure: No Substance Use Type: Heroin Advance Directives: No service: No Current occupational status: unemployed Meds Allergies Allergy/AdvReac Type Severity Reaction Status Date / Time morphine [Morphine] Allergy Severe TROUBLE Verified 04/09/21 19:16 BREATHING Sulfa (Sulfonamide Allergy Mild HIVES Verified 04/09/21 19:16 Antibiotics) Active Medications: Current Medications Generic Name Dose Route Start Last Admin Trade Name Freq PRN Reason Stop Dose Admin Acetaminophen 650 mg 07/07/21 23:57 Acetaminophen 325 Mg Tablet PO Q6H PRN Pain, Mild (Pain Scale 1-3) Dextrose/Sodium Chloride 1,000 mls @ 100 mls/hr 07/07/21 23:45 D5ns IVCONT .Q10H STACIE Melatonin 6 mg 07/07/21 23:57 Melatonin 3 Mg Tablet PO BEDTIME PRN Insomnia Senna 17.2 mg 07/07/21 23:57 Sennosides 8.6 Mg Tablet PO BEDTIME PRN Constipation Sodium Chloride 3 ml 07/08/21 00:00 0.9 % Sodium Chloride Flush 3 Ml Syringe IVFLUSH QSHIFT [facility] Physical Exam Vital Signs and Narrative: Vital Signs: Last Vital Signs Temp 97 F 07/07/21 12:25 Pulse 120 H 07/07/21 18:51 Resp 16 07/07/21 18:51 BP 108/65 07/07/21 18:51 Body Mass Index 12.7 Exam is limited as the patient is not cooperative Gen: Appears be in no acute distress HEENT: NCAT, Moist mucosa. Pulmonary: Coarse breath sounds CVS: Normal S1-S2 Abdomen: BS+, Soft, mildly tender diffusely; patient denied examining the urostomy bag site Extremities: Warm well perfused Neuro: Alert and awake. Results Labs CBC and Chem 7: 07/07/21 20:50 07/07/21 20:50 Labs: Laboratory Results - last 24 hr 07/07/21 07/07/21 07/07/21 20:50 20:50 20:50 MCV 81.2 MCH 25.4 L MCHC 31.3 RDW 16.5 H Plt Count 1047 H* D MPV 9.1 L Immature Gran % (Auto) 1.5 H Neut % (Auto) 84.1 H Lymph % (Auto) 10.0 L [place] % (Auto) 4.3 Eos % (Auto) 0.0 Baso % (Auto) 0.1 Lymph # (Auto) 2.2 [place] # (Auto) 0.9 Eos # (Auto) 0.0 Baso # (Auto) 0.0 Abs Immat Gran (auto) 0.32 H Absolute Neuts (auto) 18.3 H Absolute Nucleated RBC 0.000 Nucleated RBC % (auto) 0.0 PT 12.4 INR 1.1 Anion Gap 14 Estim Creat Clear Calc 42.7 Estimated GFR > 60 Random Glucose 79 Calcium 10.1 D Magnesium 2.3 Total Bilirubin 0.4 AST 27 ALT 39 H Alkaline Phosphatase 149 H D Total Protein 9.5 H D Albumin 3.2 L Lipase 35 Beta HCG, Quant Ethyl Alcohol 07/07/21 07/07/21 20:50 20:50 MCV MCH MCHC RDW Plt Count MPV Immature Gran % (Auto) Neut % (Auto) Lymph % (Auto) [place] % (Auto) Eos % (Auto) Baso % (Auto) Lymph # (Auto) [place] # (Auto) Eos # (Auto) Baso # (Auto) Abs Immat Gran (auto) Absolute Neuts (auto) Absolute Nucleated RBC Nucleated RBC % (auto) PT INR Anion Gap Estim Creat Clear Calc Estimated GFR Random Glucose Calcium Magnesium Total Bilirubin AST ALT Alkaline Phosphatase Total Protein Albumin Lipase Beta HCG, Quant < 2 Ethyl Alcohol < 10 Imaging Radiologist's Impressions: Impressions Abdomen/Pelvis CT 07/07/21 22:06 IMPRESSION: The examination is limited due to the lack of significant intra-abdominal fat to provide contrast between individual structures. The right kidney is presumably surgically absent with compensatory hypertrophy of the left kidney. No obvious hydronephrosis was able to be appreciated. 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 Assessment and Plan 36-year-old female with a past medical history of substance abuse, heroin abuse, CKD, history of nephrectomy, history of bladder resection status post urostomy back; hep C, IV drug abuse; presented to the hospital with a chief complaint of not feeling well, nausea vomiting and abdominal discomfort. Nausea/vomiting/abdominal discomfort: CT abdomen showed no acute findings. Supportive care. Severe protein calorie malnutrition: Nutrition consult. Nutrition supplementation. Mild hyperkalemia: EKG nonischemic. Likely in setting of mild renal insufficiency. Gentle IV fluids. Repeat potassium levels. Severe leukocytosis: Concern for possible sepsis. Patient empirically given vanc and cefepime. Will continue for now. Falls a consult to follow-up on the vanc levels. f/u Cultures. ID consult MEGHNA on CKD: Patient of by a prior history of nephrectomy.; monitor renal function while on diuresis. Severe thrombocytosis: Hematology-Oncology was aware of the patient recommended no acute intervention for no. A.m. team to follow up with Hematology. History of cystectomy status post urostomy bag: Replaced in the ER. Supportive care. Urinalysis pending. Patient refused examination. Opiate dependence: Monitor on COWS protocol. Addiction Medicine consult. DVT prophylaxis: SCD boots Code status: Full code Quality Stroke Does the patient have a stroke diagnosis?: No VTE Prior VTE?: No VTE Risk Level:: Medical - moderate - high VTE Device Contraindication: N/A - Device Ordered VTE Drug Contraindication: Treatment Not Indicated
[2021-07-08] MEDS: 0.9 % Sodium Chloride 1,000 ML 999 ML IVCONT (02:15)
[2021-07-08] MEDS: HYDROmorphone HCl 0.5 MG/0.5 ML SYRINGE 0.25 MG IVPUSH (02:17)
[2021-07-08 02:22] LABS: COVID-19 Test Negative (Negative); IDNOW Serial# 9DD0AD1C
[2021-07-08 04:17] LABS: Appearance Urine HAZY; Color Urine YELLOW; Glucose Urine UA NEG (NEG); Leukocyte Esterase Urine 1+ (NEG); Nitrite Urine NEG (NEG); UACC Culture Trigger YES; Urine Blood TRACE (NEG); Urine Ketones NEG (NEG); Urine Protein TRACE MG/DL (NEG-TRACE)
[2021-07-08 04:28] LABS: Bacteria Urine 2+ /LPF; Mucus Urine 2+ /LPF; Squamous Epithelial Cell Urine TRACE /LPF; WBC Urine 30-49 /HPF (0-4)
[2021-07-08] MEDS: vancomycin HCL 500 MG in 0.9 % Sodium Chloride 100 ML 110 MG IV (05:02)
[2021-07-08] MEDS: cefEPime HCl 1 GM in 0.9 % Sodium Chloride 50 ML IV ×2 (05:03→12:24)
[2021-07-08 05:35] VITALS: BP 103/71; PULSE 75
[2021-07-08] MEDS: cloNIDine HCL 0.1 MG TABLET PO (05:35)
[2021-07-08 05:37] VITALS: BP 103/71; PULSE 74; RESP 14; O2SAT 100
--- NOTE | 2021-07-08 06:32 | PHA.PROG ---
Admission Date/Time: July 07, 2021 23:57 Indication: Possible sepsis, empric treatment Weight in k.391 kg Adjusted body weight in K.83 kg [place] body weight in K.8 kg Obesity Dosing Indication % IBW: N/A pt underweight Serum Creatinine - Last 168 Hours 07/07/21 20:50 Creatinine 0.89 Estimated CrCl and GFR - Last 168 Hours 07/07/21 20:50 Estim Creat Clear Calc 42.7 Estimated GFR > 60 Vancomycin Loading Dose: N/A Current Vancomycin Dosing Regimen: 500mg Q12H Date and Time for next Vancomycin Level to be drawn: 07/09 @ 1600 Pharmacist Comments on Vancomycin Plan: One dose vanco 500mg given in the ED. Continue with Vanco 500mg Q12H. Expected AUC 485, trough 15.4 Monitor SCR daily Trough order to be drawn 07/09 @ 1600, before 4th dose Vancomycin dosing will take advantage of NovaliqX as a clinical decision support tool that uses Bayesian modeling to calculate individual patient's pharmacokinetic parameters and forecast the patient's drug concentration time course with the target goal AUC 24 range of 400 - 600 mg/L/hr.
--- NOTE | 2021-07-08 08:17 | PHA.MEDREC ---
Pharmacy Consult ? Medication Reconciliation Pharmacy has completed the medication reconciliation. Joanie Landeros, PharmD [phone]
[2021-07-08] MEDS: HYDROmorphone HCl 1 MG/ML SYRINGE IVPUSH ×2 (09:02→13:00)
[2021-07-08 09:03] VITALS: BP 120/83; PULSE 84; RESP 18; O2SAT 99
[2021-07-08] MEDS: 0.9 % Sodium Chloride Flush 3 ML SYRINGE IVFLUSH (09:03)
--- NOTE | 2021-07-08 09:06 | PC.NURSE ---
Pt medicated for pain. VSS. Awaiting bed placement at this time.
--- NOTE | 2021-07-08 10:09 | PM.HEMONCCN ---
Subjective - Subjective Chief complaint: Consult for: Thrombocytosis. Patient: new to practice Consult date: 07/08/21 Requesting Physician: Ike. Primary Care Provider: None Physician Medical Summary: DIAGNOSIS: THROMBOCYTOSIS. LEUKOCYTOSIS. HPI - Consult Narrative Reason for consult: Consult for: Thrombocytosis. Leukocytosis. Narrative: Shantell Knott is a pleasant 36 year old lady,presented to the hospital with a chief complaint of generalized ill health, nausea vomiting and abdominal discomfort. Patient is a poor historian. Reportedly patient has been not well over the past 3-4 days; not eating good; she is homeless as well. Patient denies any chest pain palpitations lightheadedness or dizziness. Denies any numbness tingling or focal weakness. Patient reported that her urostomy bag full 3-4 days ago. Patient denies any headaches numbness tingling or focal weakness. Denies any fever chills cough. Review of all other systems is negative except mentioned above Database: CBC: WBC 21.8, HGB 11.6, HCT 37, Platelet count of 1047. LFTs: 0.4/149/27/39. Total 49.5. Albumin 3.2. 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 Patient noticed severe leukocytosis; urinalysis was pending. Empirically given cefepime. Past medical history of: Substance abuse, heroin abuse, CKD, history of nephrectomy, history of bladder resection status post urostomy bag; hep C, IV drug abuse Review of Systems - Constitutional Reports system reviewed and no additional complaints, except as documented - Eyes Reports system reviewed and no additional complaints, except as documented - ENT Reports system reviewed and no additional complaints, except as documented - Cardiovascular Reports system reviewed and no additional complaints, except as documented - Respiratory Reports no additional respiratory complaints - Gastrointestinal Reports system reviewed and no additional complaints, except as documented - Genitourinary Reports no additional female genitourinary complaints - Musculoskeletal Reports system reviewed and no additional complaints, except as documented - Integumentary/Breasts Skin/Breast: Reports no additional skin complaints - Neurologic Reports system reviewed and no additional complaints, except as documented - Psychiatric Reports system reviewed and no additional complaints, except as documented - Endocrine Reports no additional endocrine complaints - Hematologic/Lymphatic Reports system reviewed and no additional complaints, except as documented - Allergic/Immunologic Reports system reviewed and no additional complaints, except as documented Oncology Screenings - ECOG Performance Status ECOG Performance Status: 1 [facility] Medical History: Medical History (Last Updated 07/08/21 @ 14:59 by Shi Rojas CNP) Opioid use disorder Functional capacity: independent ambulation Patient : No Surgical History: Surgical History (Last Reviewed 07/07/21 @ 20:13 by Christopher Ann MD) History of nephrectomy, right History of total cystectomy History of urostomy Social History: Social History (Last Reviewed 04/10/21 @ 05:48 by Sisi Jarrett MD) Living Situation History: Household Members: Unknown / Unable to asses Housing: Unknown / Unable to asses Do you presently have visiting nurse or other home services: No Alcohol History: Unable to assess alcohol history related to: Refusing to respond Tobacco History: Patient Tobacco Use Status: Current everyday Tobacco Tobacco use type: Cigarette Cigarette Packs Per Day: 1 Years Smoked: 15 Smoked in Last 30 Days: Yes Second Hand Smoke Exposure: No Substance Use History: Use of substances other than those prescribed or required for medical reasons: Yes Substance Use Type: Crack/Cocaine Substance Use Type: Heroin Substance Use Type: IV Drugs Substance Use Frequency: Chronic Longstanding Last Used Substance: Just Prior to Admission Currently Displaying Signs/Symptoms of Drug Intoxication Withdrawal: Yes Any prior treatment program specific to substance use: Yes Domestic Abuse History: Have you been hit, kicked, punched, or otherwise hurt by someone within the past year? If so, by whom?: No Do you feel safe in your current relationship?: No Current Relationship Is there a partner from a previous relationship who is making you feel unsafe now?: No Are you made to feel afraid or neglected: No Advance Directives: Advance Directives: No Advance Directives Information Provided: Advance Directives Information Provided comment: declined Homicidal Assessment: Do you have thoughts of harming others: None Do you have a plan to hurt others: No Plan Nutrition Assessment: Recently lost weight without trying: Unsure Eating poorly because of decreased appetite: Yes Nutrition Risks: Anorexia Patient : No : No Poor oral hygiene: No Occupation Assessmet: service: No Current occupational status: unemployed Home Medications and Allergies Current Medications: Current Medications Generic Name Dose Route Start Last Admin Trade Name Freq PRN Reason Stop Dose Admin Acetaminophen 650 mg 07/07/21 23:57 Acetaminophen 325 Mg Tablet PO Q6H PRN Pain, Mild (Pain Scale 1-3) Clonidine HCl 0.1 mg 07/08/21 00:13 07/08/21 05:35 Clonidine Hcl 0.1 Mg Tablet PO 0.1 mg BID PRN Administration anxiety/restlessness Protocol Hydromorphone HCl 1 mg 07/08/21 08:50 07/08/21 09:02 Hydromorphone Hcl 1 Mg/Ml Syringe IVPUSH 1 mg Q4H PRN Administration Opiate Withdrawal Protocol Dextrose/Sodium Chloride 1,000 mls @ 100 mls/hr 07/07/21 23:45 07/08/21 09:07 D5ns IVCONT Not Given .Q10H STACIE Cefepime HCl 1 gm/ Sodium 50 mls @ 100 mls/hr 07/08/21 01:00 07/08/21 06:14 Chloride IV Infused Q12H [facility] Infusion Vancomycin HCl 500 mg/ Sodium 110 mls @ 110 mls/hr 07/08/21 17:00 Chloride IV Q12H [facility] Melatonin 6 mg 07/07/21 23:57 Melatonin 3 Mg Tablet PO BEDTIME PRN Insomnia Oxycodone HCl 15 mg 07/08/21 08:50 Oxycodone Hcl Immed Release 15 Mg Tablet PO Q4H PRN pain Pharmacy Consult 1 each 07/08/21 00:13 Consult Rx Vancomycin Dosing MISCELLANE DAILY PRN Consult order Senna 17.2 mg 07/07/21 23:57 Sennosides 8.6 Mg Tablet PO BEDTIME PRN Constipation Sodium Chloride 3 ml 07/08/21 00:00 07/08/21 09:03 0.9 % Sodium Chloride Flush 3 Ml Syringe IVFLUSH 3 ml QSHIFT STACIE Administration Home Medications Medication Instructions Recorded Confirmed Type No Known Home Meds 07/08/21 07/08/21 History Allergies Allergy/AdvReac Type Severity Reaction Status Date / Time morphine [Morphine] Allergy Severe TROUBLE Verified 04/09/21 19:16 BREATHING Sulfa (Sulfonamide Allergy Mild HIVES Verified 04/09/21 19:16 Antibiotics) Physical Exam Vital signs: Vital Signs Temp 97.8 F 07/07/21 23:57 Pulse 84 07/08/21 09:03 Resp 18 07/08/21 09:03 BP 120/83 07/08/21 09:03 Pulse Ox 99 07/08/21 09:03 Intake & Output 07/07/21 07/08/21 07/08/21 18:59 06:59 18:59 Intake Total 1160 / 1160 Balance 1160 / 1160 Intake: Intake, IV Amount 1160 / 1160 cefEPime HCl 1 gm In 0.9 % 50 / 50 Sodium Chloride 50 ml @ 100 mls /hr IV Q12H STACIE Rx#:[id number] vancomycin HCL 500 mg In 0.9 % 110 / 110 Sodium Chloride 100 ml @ 110 mls/hr IV ONCE ONE Rx#: [id number] 0.9 % Sodium Chloride 1,000 ml 1000 / 1000 @ 999 mls/hr IVCONT .Q1H1M STACIE Rx#:[id number] Other: Weight 30.391 kg Weight 30.391 kg - Constitutional Present: moderate distress - Routine HEENT Exam Head: Present: normal inspection ENT: Present: mucous membranes moist - Routine Neck Exam Present: supple - Routine Respiratory Exam Present: CTAB - Routine Cardiovascular Exam Cardiovascular: Present: RRR, S1, S2 - Routine Extremities Exam Present: nontender - Routine Skin Exam Present: intact - Routine Neurological Exam Present: alert, oriented X3 - Detailed Neurological Exam: Coma Scale Eye Opening: Spontaneous (4) Verbal Response: Oriented (5) Motor Response: Obeys commands (6) [place]irit Coma Scale Total: 15 Hem/Onc Consult Result - Labs CBC & Chem 7: 07/08/21 13:27 07/08/21 13:27 Labs: Short CBC 07/07/21 Range/Units 20:50 WBC 21.8 H (4.8-10.8) X10*3/uL Hgb 11.6 L (12.0-16.0) g/dl Hct 37.1 (37-47) % Plt Count 1047 H* D (160-400) X10*3/uL BMP 07/07/21 20:50 Sodium 131 L Potassium 5.6 H D Chloride 103 Carbon Dioxide 20 L BUN 60 H D Creatinine 0.89 Calcium 10.1 D Liver Function 07/07/21 Range/Units 20:50 Total Bilirubin 0.4 (0.0-1.0) mg/dL AST 27 (5-31) U/L ALT 39 H (0-31) U/L Alkaline Phosphatase 149 H D (39-117) U/L Albumin 3.2 L (3.5-5.0) g/dL Urine 07/08/21 Range/Units 04:11 Urine Color YELLOW Urine Appearance HAZY Urine pH 7.0 (5.0-8.0) Ur Specific [place] 1.010 (1.005-1.025) Urine Protein TRACE (NEG-TRACE) MG/DL Urine Glucose (UA) NEG (NEG) MG/DL Assessment and Plan Patient Active problem list reviewed?: Yes (1) Thrombocytosis Status: Acute Assessment and plan: 36 year old lady, with history of IV drug abuse, presents with generalized weakness. Noted to have a leukocytosis and thrombocytosis. DIFFERENTIAL DIAGNOSIS: 1. LUKEMOID REACTION: 2. ESSENTIAL THROMBOCYTOSIS: 3. CML: PLAN: I will proceed with further evaluation. Review peripheral smear. Check LDH. Check JAK2 mutation. Check BCR-ABL gene transcript. Total protein is elevated. Will check an SIEP. Will follow the trend of her blood count. If it continues to stay elevated can consider a bone marrow exam. Thank you, CC: Ike. Unfortunately the patient did not stay. She signed out AMA. - Time Spent With Patient Time Spent with Patient (in minutes): 30
[2021-07-08] MEDS: oxyCODONE HCl Immed Release 15 MG TABLET PO (10:17)
--- NOTE | 2021-07-08 10:25 | PC.NURSE ---
Pt yelling out stating that she is in pain in her legs and back 07/04. She was given IV dilauded about one hour ago and po oxycodone 15mg. Shi Rojas at bedside with plan to administer Methadone. Shi is ordering this medication at this time.
[2021-07-08] MEDS: methADONE HCl 20 MG/2 ML ORAL.CONC 25 MG PO (11:02)
--- NOTE | 2021-07-08 11:02 | PC.NURSE ---
PO methadone given. Report given to Licha OLIVA on Med surg
[2021-07-08 11:53] VITALS: BP 114/76; PULSE 85; RESP 17; TEMP 36.7; O2SAT 100
[2021-07-08 13:37] LABS: MANUAL DIFF FLAG NO
[2021-07-08 13:42] LABS: Basophils Percent Auto 0.1 % (0-2); Hematocrit 30.1 % (37-47); Hemoglobin 9.6 g/dl (12.0-16.0); Imm Gran Abs Auto 0.09 X10*3/uL (0.00-0.03); Imm Gran Pct Auto 0.8 % (0.0-0.4); Lymphocytes Absolute Auto 1.3 X10*3/uL (1.2-4.9); Lymphocytes Percent Auto 11.9 % (20-40); Mean Corpuscular HGB Conc 31.9 g/dl (31.0-35.0); Mean Corpuscular Hemoglobin 25.5 pg (27.0-33.0); Mean Corpuscular Volume 79.8 fL (80-98); Monocytes Absolute Auto 0.5 X10*3/uL (0.1-1.2); Monocytes Percent Auto 4.4 % (2-11); Neutrophils Percent Auto 82.8 % (45-73); Platelet Count 719 X10*3/uL (160-400); Red Blood Count 3.77 X10*6/uL (4.20-5.50); Red Cell Distribution Width 16.7 % (11.0-16.0); White Blood Count 10.9 X10*3/uL (4.8-10.8)
[2021-07-08 13:54] LABS: Lactate Dehydrogenase 101 U/L (122-220)
[2021-07-08 14:05] LABS: Anion Gap 12 (12-20); Blood Urea Nitrogen 40 mg/dL (9-16); Calcium 8.5 mg/dL (8.4-10.2); Carbon Dioxide 15 mmol/L (22-29); Chloride 109 mmol/L (96-108); Creatinine Clr Calc Pharmacy 59.4; Estimated Glomerular Filt Rate > 60; Glucose Random 95 mg/dL (60-115); Potassium 3.8 mmol/L (3.3-5.1); Sodium 132 mmol/L (135-145)
[2021-07-08 14:16] LABS: HIV AB/AG Nonreactive (Nonreactive); HIV Num 1 0.05 S/CO (0.00-0.99)
--- NOTE | 2021-07-08 14:30 | HO.ADDICTCON ---
History of Present Illness Date of Service: 07/08/2021 Chief Complaint: Sepsis Reason for Consult: OUD Requesting physician: Gerhard Ramires Discussed with referring provider: No Sources of Information: patient interviewed and chart reviewed HPI Narrative: Patient is a 36 year old female with OUD and history of cystectomy and nephrectomy currently medically admitted with malaise and thrombocytosis. Consult requested as patient reporting withdrawal sx. Patient initially seen in the ED along with Recovery support RN. Patient awake, alert and crying out for more Dilaudid. Somewhat difficult to obtain history as patient was perseverating on getting additional doses of Dilaudid. Reporting nausea, pain, restlessness, vomiting, anxiety Per RSRN, patient reported using approximately 4-5 bundles QD as well as unknown amount of cocaine. History of MOUD, including methadone--reports previously at 130mg over a year ago. Past Psychiatric History: not reviewed Personal & Social History: currently experiencing homelessness unclear what social supports are in place Review of Systems Review of Systems as per HPI Diagnostics Vital Signs (24Hr): Vital Signs - 24 hr 07/07/21 18:51 07/07/21 23:57 07/08/21 05:35 Temperature 97.8 F Pulse Rate 120 H 76 75 Respiratory Rate 16 16 Blood Pressure 108/65 138/94 H 103/71 Pulse Oximetry 100 07/08/21 05:37 07/08/21 09:03 07/08/21 11:53 Temperature 98.0 F Pulse Rate 74 84 85 Respiratory Rate 14 18 17 Blood Pressure 103/71 120/83 114/76 Pulse Oximetry 100 99 100 Body Mass Index 12.7 Labs Results: 07/08/21 13:27 07/08/21 13:27 Labs: Laboratory Results - last 48 hr 07/07/21 07/07/21 07/07/21 20:50 20:50 20:50 WBC 21.8 H RBC 4.57 Hgb 11.6 L Hct 37.1 MCV 81.2 MCH 25.4 L MCHC 31.3 RDW 16.5 H Plt Count 1047 H* D MPV 9.1 L Immature Gran % (Auto) 1.5 H Neut % (Auto) 84.1 H Lymph % (Auto) 10.0 L [place] % (Auto) 4.3 Eos % (Auto) 0.0 Baso % (Auto) 0.1 Lymph # (Auto) 2.2 [place] # (Auto) 0.9 Eos # (Auto) 0.0 Baso # (Auto) 0.0 Abs Immat Gran (auto) 0.32 H Absolute Neuts (auto) 18.3 H Absolute Nucleated RBC 0.000 Nucleated RBC % (auto) 0.0 PT 12.4 INR 1.1 Sodium 131 L Potassium 5.6 H D Chloride 103 Carbon Dioxide 20 L Anion Gap 14 BUN 60 H D Creatinine 0.89 Estim Creat Clear Calc 42.7 Estimated GFR > 60 Random Glucose 79 Calcium 10.1 D Magnesium 2.3 Total Bilirubin 0.4 AST 27 ALT 39 H Alkaline Phosphatase 149 H D Lactate Dehydrogenase Total Protein 9.5 H D Albumin 3.2 L Lipase 35 Beta HCG, Quant Urine Color Urine Appearance Urine pH Ur Specific [place] Urine Protein Urine Glucose (UA) Urine Ketones Urine Blood Urine Nitrite Ur Leukocyte Esterase Urine RBC Urine WBC Ur Squamous Epith Cells Urine Bacteria Urine Mucus Ethyl Alcohol COVID-19 ([facility]) COVID-19 Clin Com HIV 1&2 Ab/P24 Ag 4thGn 07/07/21 07/07/21 07/08/21 20:50 20:50 02:01 WBC RBC Hgb Hct MCV MCH MCHC RDW Plt Count MPV Immature Gran % (Auto) Neut % (Auto) Lymph % (Auto) [place] % (Auto) Eos % (Auto) Baso % (Auto) Lymph # (Auto) [place] # (Auto) Eos # (Auto) Baso # (Auto) Abs Immat Gran (auto) Absolute Neuts (auto) Absolute Nucleated RBC Nucleated RBC % (auto) PT INR Sodium Potassium Chloride Carbon Dioxide Anion Gap BUN Creatinine Estim Creat Clear Calc Estimated GFR Random Glucose Calcium Magnesium Total Bilirubin AST ALT Alkaline Phosphatase Lactate Dehydrogenase Total Protein Albumin Lipase Beta HCG, Quant < 2 Urine Color Urine Appearance Urine pH Ur Specific [place] Urine Protein Urine Glucose (UA) Urine Ketones Urine Blood Urine Nitrite Ur Leukocyte Esterase Urine RBC Urine WBC Ur Squamous Epith Cells Urine Bacteria Urine Mucus Ethyl Alcohol < 10 COVID-19 ([facility]) Negative COVID-19 Clin Com See Note HIV 1&2 Ab/P24 Ag 4thGn 07/08/21 07/08/21 07/08/21 04:11 13:27 13:27 WBC 10.9 H RBC 3.77 L Hgb 9.6 L Hct 30.1 L MCV 79.8 L MCH 25.5 L MCHC 31.9 RDW 16.7 H Plt Count 719 H D MPV 9.0 L Immature Gran % (Auto) 0.8 H Neut % (Auto) 82.8 H Lymph % (Auto) 11.9 L [place] % (Auto) 4.4 Eos % (Auto) 0.0 Baso % (Auto) 0.1 Lymph # (Auto) 1.3 [place] # (Auto) 0.5 Eos # (Auto) 0.0 Baso # (Auto) 0.0 Abs Immat Gran (auto) 0.09 H Absolute Neuts (auto) 9.0 H Absolute Nucleated RBC 0.000 Nucleated RBC % (auto) 0.0 PT INR Sodium 132 L Potassium 3.8 D Chloride 109 H Carbon Dioxide 15 L Anion Gap 12 BUN 40 H Creatinine 0.64 Estim Creat Clear Calc 59.4 Estimated GFR > 60 Random Glucose 95 Calcium 8.5 D Magnesium Total Bilirubin AST ALT Alkaline Phosphatase Lactate Dehydrogenase Total Protein Albumin Lipase Beta HCG, Quant Urine Color YELLOW Urine Appearance HAZY Urine pH 7.0 Ur Specific [place] 1.010 Urine Protein TRACE Urine Glucose (UA) NEG Urine Ketones NEG Urine Blood TRACE Urine Nitrite NEG Ur Leukocyte Esterase 1+ H Urine RBC 1-4 Urine WBC 30-49 H Ur Squamous Epith Cells TRACE Urine Bacteria 2+ Urine Mucus 2+ Ethyl Alcohol COVID-19 ([facility]) COVID-19 Clin Com HIV 1&2 Ab/P24 Ag 4thGn 07/08/21 07/08/21 13:27 13:27 WBC RBC Hgb Hct MCV MCH MCHC RDW Plt Count MPV Immature Gran % (Auto) Neut % (Auto) Lymph % (Auto) [place] % (Auto) Eos % (Auto) Baso % (Auto) Lymph # (Auto) [place] # (Auto) Eos # (Auto) Baso # (Auto) Abs Immat Gran (auto) Absolute Neuts (auto) Absolute Nucleated RBC Nucleated RBC % (auto) PT INR Sodium Potassium Chloride Carbon Dioxide Anion Gap BUN Creatinine Estim Creat Clear Calc Estimated GFR Random Glucose Calcium Magnesium Total Bilirubin AST ALT Alkaline Phosphatase Lactate Dehydrogenase 101 L Total Protein Albumin Lipase Beta HCG, Quant Urine Color Urine Appearance Urine pH Ur Specific [place] Urine Protein Urine Glucose (UA) Urine Ketones Urine Blood Urine Nitrite Ur Leukocyte Esterase Urine RBC Urine WBC Ur Squamous Epith Cells Urine Bacteria Urine Mucus Ethyl Alcohol COVID-19 ([facility]) COVID-19 Clin Com HIV 1&2 Ab/P24 Ag 4thGn Nonreactive EKG EKG: reviewed Imaging Radiology Impressions: ITS Impressions Abdomen/Pelvis CT 07/07/21 22:06 IMPRESSION: The examination is limited due to the lack of significant intra-abdominal fat to provide contrast between individual structures. The right kidney is presumably surgically absent with compensatory hypertrophy of the left kidney. No obvious hydronephrosis was able to be appreciated. 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 Mental Status Exam Mental Status Exam Patient Appearance: Disheveled and Unkempt (cachectic, ) Patient Orientation: Person, Place, Time and Situation Level of Consciousness: Awake and Restless Patient Behavior: Restless (yelling out) Mood Description: Anxious Affect Description: Anxious Judgement: Poor Medications Medications Current Medications Generic Name Dose Route Start Last Admin Trade Name Freq PRN Reason Stop Dose Admin Acetaminophen 650 mg 07/07/21 23:57 Acetaminophen 325 Mg Tablet PO Q6H PRN Pain, Mild (Pain Scale 1-3) Clonidine HCl 0.1 mg 07/08/21 00:13 07/08/21 05:35 Clonidine Hcl 0.1 Mg Tablet PO 0.1 mg BID PRN Administration anxiety/restlessness Protocol Hydromorphone HCl 1 mg 07/08/21 08:50 07/08/21 13:00 Hydromorphone Hcl 1 Mg/Ml Syringe IVPUSH 1 mg Q4H PRN Administration Opiate Withdrawal Protocol Dextrose/Sodium Chloride 1,000 mls @ 100 mls/hr 07/07/21 23:45 07/08/21 09:07 D5ns IVCONT Not Given .Q10H STACIE Cefepime HCl 1 gm/ Sodium 50 mls @ 100 mls/hr 07/08/21 01:00 07/08/21 13:03 Chloride IV Infused Q12H [facility]ACIE Infusion Vancomycin HCl 500 mg/ Sodium 110 mls @ 110 mls/hr 07/08/21 17:00 Chloride IV Q12H STACIE Melatonin 6 mg 07/07/21 23:57 Melatonin 3 Mg Tablet PO BEDTIME PRN Insomnia Oxycodone HCl 15 mg 07/08/21 08:50 07/08/21 10:17 Oxycodone Hcl Immed Release 15 Mg Tablet PO 15 mg Q4H PRN Administration pain Pharmacy Consult 1 each 07/08/21 00:13 Consult Rx Vancomycin Dosing MISCELLANE DAILY PRN Consult order Senna 17.2 mg 07/07/21 23:57 Sennosides 8.6 Mg Tablet PO BEDTIME PRN Constipation Sodium Chloride 3 ml 07/08/21 00:00 07/08/21 09:03 0.9 % Sodium Chloride Flush 3 Ml Syringe IVFLUSH 3 ml QSHIFT STACIE Administration Allergies Allergies Allergy/AdvReac Type Severity Reaction Status Date / Time morphine [Morphine] Allergy Severe TROUBLE Verified 04/09/21 19:16 BREATHING Sulfa (Sulfonamide Allergy Mild HIVES Verified 04/09/21 19:16 Antibiotics) Assessment & Plan Assessment & Plan (1) Opioid use disorder: Status: Acute Code(s): F11.99 - Opioid use, unspecified with unspecified opioid-induced disorder Assessment and Plan: patient eventually agreed to methadone --initially refusing everything unless it was accompanied by an increase in dilaudid 25mg methadone administered--when patient seen in follow up she reported vomiting the dose and asked again for dilaudid (unclear if dose was vomited) . Reinforced that dilaudid was not an option and offered additional methadone which patient accepted. Additional 10mg methadone ordered Patient minimally engaged at follow up. Declining any other intervention One hour after second dose of methadone ordered, patient signed out AMA. If she presents to [facility] again, will resume methadone as appropriate 60 mins multiple visits to patient, case discussed with provider and nursing team Greater than 50% of the session was spent on counseling and/or coordination of care PMFSH Past Medical History Medical History (Updated 07/08/21 @ 14:59 by Shi Rojas CNP) Opioid use disorder Surgical History Surgical History (Updated 07/08/21 @ 10:23 by Anya Grayson MD) History of nephrectomy, right History of total cystectomy History of urostomy Social History Social History Household Members: Unknown / Unable to assess Housing: Unknown / Unable to assess Do you presently have visiting nurse or other home services: No Unable to assess alcohol history related to: Refusing to respond Patient Tobacco Use Status: Current everyday Tobacco user Tobacco use type: Cigarette Cigarette Packs Per Day: 1 Years Smoked: 15 Smoked in Last 30 Days: Yes Second Hand Smoke Exposure: No Use of substances other than those prescribed or required for medical reasons: Yes Substance Use Type: Crack/Cocaine, Heroin and IV Drugs Substance Use Frequency: Chronic Longstanding Last Used Substance: Just Prior to Admission Currently Displaying Signs/Symptoms of Drug Intoxication Withdrawal: Yes Any prior treatment program specific to substance use: Yes Have you been hit, kicked, punched, or otherwise hurt by someone within the past year? If so, by whom?: No Do you feel safe in your current relationship?: No Current Relationship Is there a partner from a previous relationship who is making you feel unsafe now?: No Are you made to feel afraid or neglected: No Advance Directives: No Do you have thoughts of harming others: None Do you have a plan to hurt others: No Plan Recently lost weight without trying: Unsure Eating poorly because of decreased appetite: Yes Nutrition Risks: Anorexia Patient : No : No Poor oral hygiene: No service: No Current occupational status: unemployed
--- NOTE | 2021-07-08 14:31 | P.CDIC_ITS ---
CDI Concurrent Query Documentation Clarification: PHYSICIAN'S DOCUMENTATION REQUEST Date of Query: 07/08/21 1432 Patient Name: Shantell Knott Admit Date: 07/07/21 Dear Doctor, A review of the medical record indicates additional documentation may be needed. Please review below and update the documentation accordingly. Clinical Indicators: The following diagnoses or signs and symptoms were noted in the patient record: Lab Tests: Sodium 131 Other Documentation: IVF NS Risk Factors/Clinical Indicators/Treatments Per ED: Acute Dehydration Hyponatremia * Other ? please specify * Unable to determine Use of terms such as suspected, likely, concern for, or probable (associated with a specific diagnosis that is being evaluated, monitored, or treated as if it exists) are acceptable and can be coded in the inpatient setting, when documented at the time of discharge. Thank you, Nuha Lion RN Extension: [phone] Please use your independent medical judgment in providing your response. THIS QUERY IS PART OF THE PERMANENT MEDICAL RECORD Provider Response: Other Other Diagnosis: Patient left before being seen. Unable to determined.
[2021-07-08] MEDS: methADONE HCl 20 MG/2 ML ORAL.CONC 10 MG PO (14:32)
--- NOTE | 2021-07-08 15:38 | PM.DS ---
DS: Providers Provider Date of Service: 07/08/21 Date of admission: 07/07/21 23:57 Primary care physician: None Physician Consults: 07/08/21 00:00 Addiction Medicine Routine Consulting Provider: Shi Rojas Reason for consultation: heroin abuse 07/08/21 00:15 Consult to Hematology / Oncology Routine Consulting Provider: Anya Grayson Reason for consultation: thrombocytosis Consult to Infectious Diseases Routine Consulting Provider: Damari Sahu Reason for consultation: sepsis; hx IVDA Attending physician on discharge: Prashanth Moser Discharging clinician: Nrey Sun DS: Diagnosis Discharge Diagnosis (1) Opioid use disorder: Status: Acute DS: Summary Hospital Course Hospital Course: HP as per admitting provider 36-year-old female with a past medical history of substance abuse, heroin abuse, CKD, history of nephrectomy, history of bladder resection status post urostomy back; hep C, IV drug abuse; presented to the hospital with a chief complaint of not feeling well, nausea vomiting and abdominal discomfort. Patient is a poor historian. Reportedly patient has been not well over the past 3-4 days; not eating good; ER team mentioned the patient is homeless as well. Patient denies any chest pain palpitations lightheadedness or dizziness. Denies any numbness tingling or focal weakness. Patient reported that her urostomy bag full of 3-4 days ago. Review of all other systems is negative except mentioned above ER course: Per ER team patient urostomy leg was treatment; CT abdomen showed no acute intra-abdominal process but noted chronic absent kidney as well as a bladder. Patient noticed severe leukocytosis; urinalysis was pending.? Empirically given cefepime.? Also noted to have platelet count of 1047; discussed with Dr. Hernandes who mentioned no acute intervention for tonight and will be evaluated in the morning. Patient denies any headaches numbness tingling or focal weakness.? Denies any fever chills cough . Unfortunately the patient decided to leave against medical advice before a complete workup was done, she also left prior to being seen by the provider Time Spent with Patient Time attestation: Total time spent providing and/or coordinating discharge services: Discharge coordination time: Less than 30 minutes Quality: Stroke Does the patient have a stroke diagnosis?: No Physical Exam Vital Signs: Vital Signs: Last Vital Signs Temp 98.0 F 07/08/21 11:53 Pulse 85 07/08/21 11:53 Resp 17 07/08/21 11:53 BP 114/76 07/08/21 11:53 Pulse Ox 100 07/08/21 11:53 Body Mass Index 12.7 patient left prior to being seen again by this provider DS: Data Data Completed and Pending Labs on day of discharge: Laboratory Results - last 24 hr 07/07/21 07/07/21 07/07/21 20:50 20:50 20:50 WBC 21.8 H RBC 4.57 Hgb 11.6 L Hct 37.1 MCV 81.2 MCH 25.4 L MCHC 31.3 RDW 16.5 H Plt Count 1047 H* D MPV 9.1 L Immature Gran % (Auto) 1.5 H Neut % (Auto) 84.1 H Lymph % (Auto) 10.0 L [place] % (Auto) 4.3 Eos % (Auto) 0.0 Baso % (Auto) 0.1 Lymph # (Auto) 2.2 [place] # (Auto) 0.9 Eos # (Auto) 0.0 Baso # (Auto) 0.0 Abs Immat Gran (auto) 0.32 H Absolute Neuts (auto) 18.3 H Absolute Nucleated RBC 0.000 Nucleated RBC % (auto) 0.0 PT 12.4 INR 1.1 Sodium 131 L Potassium 5.6 H D Chloride 103 Carbon Dioxide 20 L Anion Gap 14 BUN 60 H D Creatinine 0.89 Estim Creat Clear Calc 42.7 Estimated GFR > 60 Random Glucose 79 Calcium 10.1 D Magnesium 2.3 Total Bilirubin 0.4 AST 27 ALT 39 H Alkaline Phosphatase 149 H D Lactate Dehydrogenase Total Protein 9.5 H D Albumin 3.2 L Lipase 35 Beta HCG, Quant Urine Color Urine Appearance Urine pH Ur Specific [place] Urine Protein Urine Glucose (UA) Urine Ketones Urine Blood Urine Nitrite Ur Leukocyte Esterase Urine RBC Urine WBC Ur Squamous Epith Cells Urine Bacteria Urine Mucus Ethyl Alcohol COVID-19 ([facility]) COVID-19 Clin Com HIV 1&2 Ab/P24 Ag 4thGn 07/07/21 07/07/21 07/08/21 20:50 20:50 02:01 WBC RBC Hgb Hct MCV MCH MCHC RDW Plt Count MPV Immature Gran % (Auto) Neut % (Auto) Lymph % (Auto) [place] % (Auto) Eos % (Auto) Baso % (Auto) Lymph # (Auto) [place] # (Auto) Eos # (Auto) Baso # (Auto) Abs Immat Gran (auto) Absolute Neuts (auto) Absolute Nucleated RBC Nucleated RBC % (auto) PT INR Sodium Potassium Chloride Carbon Dioxide Anion Gap BUN Creatinine Estim Creat Clear Calc Estimated GFR Random Glucose Calcium Magnesium Total Bilirubin AST ALT Alkaline Phosphatase Lactate Dehydrogenase Total Protein Albumin Lipase Beta HCG, Quant < 2 Urine Color Urine Appearance Urine pH Ur Specific [place] Urine Protein Urine Glucose (UA) Urine Ketones Urine Blood Urine Nitrite Ur Leukocyte Esterase Urine RBC Urine WBC Ur Squamous Epith Cells Urine Bacteria Urine Mucus Ethyl Alcohol < 10 COVID-19 ([facility]) Negative COVID-19 Clin Com See Note HIV 1&2 Ab/P24 Ag 4thGn 07/08/21 07/08/21 07/08/21 04:11 13:27 13:27 WBC 10.9 H RBC 3.77 L Hgb 9.6 L Hct 30.1 L MCV 79.8 L MCH 25.5 L MCHC 31.9 RDW 16.7 H Plt Count 719 H D MPV 9.0 L Immature Gran % (Auto) 0.8 H Neut % (Auto) 82.8 H Lymph % (Auto) 11.9 L [place] % (Auto) 4.4 Eos % (Auto) 0.0 Baso % (Auto) 0.1 Lymph # (Auto) 1.3 [place] # (Auto) 0.5 Eos # (Auto) 0.0 Baso # (Auto) 0.0 Abs Immat Gran (auto) 0.09 H Absolute Neuts (auto) 9.0 H Absolute Nucleated RBC 0.000 Nucleated RBC % (auto) 0.0 PT INR Sodium 132 L Potassium 3.8 D Chloride 109 H Carbon Dioxide 15 L Anion Gap 12 BUN 40 H Creatinine 0.64 Estim Creat Clear Calc 59.4 Estimated GFR > 60 Random Glucose 95 Calcium 8.5 D Magnesium Total Bilirubin AST ALT Alkaline Phosphatase Lactate Dehydrogenase Total Protein Albumin Lipase Beta HCG, Quant Urine Color YELLOW Urine Appearance HAZY Urine pH 7.0 Ur Specific [place] 1.010 Urine Protein TRACE Urine Glucose (UA) NEG Urine Ketones NEG Urine Blood TRACE Urine Nitrite NEG Ur Leukocyte Esterase 1+ H Urine RBC 1-4 Urine WBC 30-49 H Ur Squamous Epith Cells TRACE Urine Bacteria 2+ Urine Mucus 2+ Ethyl Alcohol COVID-19 ([facility]) COVID-19 Clin Com HIV 1&2 Ab/P24 Ag 4thGn 07/08/21 07/08/21 13:27 13:27 WBC RBC Hgb Hct MCV MCH MCHC RDW Plt Count MPV Immature Gran % (Auto) Neut % (Auto) Lymph % (Auto) [place] % (Auto) Eos % (Auto) Baso % (Auto) Lymph # (Auto) [place] # (Auto) Eos # (Auto) Baso # (Auto) Abs Immat Gran (auto) Absolute Neuts (auto) Absolute Nucleated RBC Nucleated RBC % (auto) PT INR Sodium Potassium Chloride Carbon Dioxide Anion Gap BUN Creatinine Estim Creat Clear Calc Estimated GFR Random Glucose Calcium Magnesium Total Bilirubin AST ALT Alkaline Phosphatase Lactate Dehydrogenase 101 L Total Protein Albumin Lipase Beta HCG, Quant Urine Color Urine Appearance Urine pH Ur Specific [place] Urine Protein Urine Glucose (UA) Urine Ketones Urine Blood Urine Nitrite Ur Leukocyte Esterase Urine RBC Urine WBC Ur Squamous Epith Cells Urine Bacteria Urine Mucus Ethyl Alcohol COVID-19 ([facility]) COVID-19 Clin Com HIV 1&2 Ab/P24 Ag 4thGn Nonreactive Discharge Plan Discharge Anticipated Discharge Date/Time: 07/08/21 15:34 Patient Disposition: Left Against Medical Advice Discharge Diagnosis: SEVERE PROTEIN CALORIE MALNUTRITION HYPERKALEMIA THROMBOCYTOSIS OPIATE DEPENDENCE Referrals: Physician,None [Primary Care Provider] - 1 Week Discharge Medications: No Action No Known Home Meds RF: 0 Discharge Orders: Discharge Order (Routine); Ordered 07/08/21 Ordered By: Nery Sun Diet: advance to usual diet Activity on Discharge: As tolerated Care Plan Goals: UNFORTUNATELY PATIENT LEFT AGAINST MEDICAL ADVICE PRIOR TO CONTINUING TREATMENT, SHE LEFT BEFORE SHE WAS SEEN BY PROVIDER Health Concerns: SEVERE PROTEIN CALORIE MALNUTRITION HYPERKALEMIA THROMBOCYTOSIS OPIATE DEPENDENCE Plan of Treatment: PATIENT LEFT AGAINST MEDICAL ADVICE Assessment: SEE DISCHARGE SUMMARY Discharge Date/Time: 07/08/21 14:55
[2021-07-10 21:57] LABS: IgA 389 mg/dL (47-310); IgG 2686 mg/dL (600-1640); IgM 244 mg/dL (50-300)
== END 2021-07-08 14:55 | disposition left against medical advice (07) | DRG 422 ==
LOC: HO.ED 22:04 → HO.EDOVER 07-08 00:24 → HO.S3 07-08 09:15
PROVIDERS: Internal Medicine Medical Oncology; Physician Assistant Medical; Admitting Provider Hospitalist; Emergency Provider Emergency Medicine; PCP Nurse Practitioner; Visit Provider Nurse Practitioner Acute Care
DX: E87.5 Hyperkalemia (principal); E86.0 Dehydration; E43 Unspecified severe protein-calorie malnutrition; N17.9 Acute kidney failure, unspecified; F17.210 Nicotine dependence, cigarettes, uncomplicated; Z93.6 Other artificial openings of urinary tract status; D72.829 Elevated white blood cell count, unspecified; F11.20 Opioid dependence, uncomplicated; D47.3 Essential (hemorrhagic) thrombocythemia; N18.9 Chronic kidney disease, unspecified; Z59.0 Homelessness; Z71.6 Tobacco abuse counseling; Z88.2 Allergy status to sulfonamides; Z88.5 Allergy status to narcotic agent; Z90.5 Acquired absence of kidney; Z86.19 Personal history of other infectious and parasitic diseases; Z68.1 Body mass index [BMI] 19.9 or less, adult; Z20.822 Contact with and (suspected) exposure to COVID-19
CPT/HCPCS: 36415; 74176; 80048; 80053; 81001; 81206; 81207; 81219; 81270; 81279; 81339; 82077; 82784; 83615; 83690; 83735; 84702; 85025; 85610; 86334; 87040; 87086; 87088; 87186; 87389; 87635; 96361; 96365; 96375; 96376; 99218; 99284; 99285; J0692; J1170; J2405; J3370

== ENCOUNTER 2021-12-02 12:30 | Emergency (ER) | payer MEDICAID, SELFPAY ==
--- NOTE | 2021-12-02 13:27 | PC.NURSE ---
PT CALLED, NOT IN WR. [facility],P[facility] LOOKED OUTSIDE FOR HER.
== END 2021-12-02 14:09 | disposition left against medical advice (07) ==
PROVIDERS: Emergency Provider Emergency Medicine
DX: Z04.9 Encounter for examination and observation for unspecified reason (principal)

== ENCOUNTER 2021-12-10 10:41 | Emergency (ER) | payer MEDICAID, SELFPAY ==
[2021-12-10 10:54] VITALS: BP 122/85; PULSE 90; RESP 18; TEMP 36.9; O2SAT 97; BMI 15.5
--- NOTE | 2021-12-10 12:09 | PC.NURSE ---
per security patient was witnessed walking out of ED
== END 2021-12-10 12:10 | disposition left against medical advice (07) ==
PROVIDERS: Emergency Provider Emergency Medicine
DX: R10.13 Epigastric pain (principal); K21.9 Gastro-esophageal reflux disease without esophagitis
CPT/HCPCS: 99281; 99282

== ENCOUNTER 2021-12-23 15:06 | Emergency (ER) | payer MEDICAID, SELFPAY | END 2021-12-23 17:49 | disposition left against medical advice (07) | PROVIDERS: Emergency Provider Emergency Medicine | DX: R31.9 Hematuria, unspecified (principal); R10.9 Unspecified abdominal pain ==

== ENCOUNTER 2021-12-31 16:28 | Emergency (ER) | payer MEDICAID, SELFPAY ==
[2021-12-31 16:38] VITALS: BP 141/66; PULSE 73; RESP 21; TEMP 36.7; O2SAT 94; BMI 16.1
== END 2021-12-31 18:08 | disposition left against medical advice (07) ==
LOC: HO.ED 18:02
PROVIDERS: Emergency Provider Emergency Medicine
DX: R06.02 Shortness of breath (principal); R53.1 Weakness
CPT/HCPCS: 99281; 99282

== ENCOUNTER 2022-01-21 17:49 | Emergency (ER) | payer MEDICAID, SELFPAY ==
[2022-01-21 18:18] VITALS: BP 132/76; PULSE 109; RESP 19; TEMP 36.6; O2SAT 99; BMI 13.8
== END 2022-01-21 20:27 | disposition left against medical advice (07) ==
PROVIDERS: Emergency Provider Emergency Medicine
DX: J02.9 Acute pharyngitis, unspecified (principal); R53.1 Weakness; R06.02 Shortness of breath
CPT/HCPCS: 99281; 99282

== ENCOUNTER 2022-02-27 13:50 | Emergency (ER) | payer OTHER, SELFPAY ==
--- NOTE | ~2022-02-27 | CT_ITS ---
EXAMINATION: CT ABDOMEN AND PELVIS WITH CONTRAST CLINICAL INFORMATION: Abdominal pain, history of urostomy and small bowel obstruction. COMPARISON: 07/07/2021 CT scan of the abdomen and pelvis. TECHNIQUE: Multidetector volumetric images were obtained from the superior aspect of the liver through the pubic symphysis following administration 85 mL of Omnipaque 350 intravenous contrast. Sagittal and coronal reformatted images were obtained on the technologist's workstation. There is some limitation secondary to lack of intraperitoneal fat. Oral contrast: No This CT examination was performed using dose optimization techniques as appropriate, variously including the following: *Automated exposure control *Adjustment of mA and/or kV according to patient size (this includes techniques or standardized protocols for targeted exams where dose is matched to indication/reason for exam; i.e. extremities or head) *Use of iterative reconstruction technique DLP: 243 mGy-cm FINDINGS: LUNG BASES: The visualized lung bases are unremarkable. LIVER, GALLBLADDER, AND BILIARY TREE: Hepatomegaly without focal abnormality. The right lobe measures up to 22 cm (previously 14 cm), image 45, series 5. Status post cholecystectomy. No significant biliary abnormality. PANCREAS: Unremarkable. SPLEEN: Enlarged measuring up to 16.0 cm (previously 9.0 cm). ADRENAL GLANDS: Unremarkable. KIDNEYS AND URETERS: Status post right nephrectomy. Compensatory hypertrophy of the left kidney without abnormality. BLADDER: Unremarkable. GASTROINTESTINAL TRACT: The stomach and small bowel are unremarkable. Surgical clips are seen at the base of the cecum. The appendix is not visualized. No inflammatory changes. The colon shows moderate stool throughout extending distally to the rectum. No surrounding abnormality. ABDOMINAL WALL: No significant hernia is appreciated. LYMPH NODES: No lymphadenopathy. VASCULAR: Unremarkable. PELVIC VISCERA: Unremarkable. OSSEOUS STRUCTURES: Unremarkable. CT/CT abdomen pelvis w con IMPRESSION: 1. Hepatosplenomegaly representing significant interval increase from the previous study. A causative abnormality is not identified. 2. Moderate colonic stool burden without acute abnormality. Nonobstructive bowel gas pattern. Fleischner guidelines were followed.
[2022-02-27 13:52] VITALS: BP 112/72; PULSE 87
[2022-02-27 13:55] VITALS: BP 116/58; PULSE 63; RESP 18; TEMP 36.5; O2SAT 100; BMI 16.4
--- NOTE | 2022-02-27 14:22 | ED_ITS ---
HPI - General Adult General Chief complaint: General Medical Stated complaint: flank pain Time Seen by Provider: 02/27/22 14:18 History of Present Illness HPI narrative: Patient is a [age]-year-old female with a history of urostomy. Patient has a urostomy from the left kidney. The right kidney is atrophied. Multiple episodes of small-bowel obstructions in the past. Patient started with a bladder surgery for short stay ureter and small bladder at the age of 8. Complicated by blockages. Subsequently requiring a urostomy. The urostomy been complicated by multiple infections. Multiple small bowel obstructions in the past. Most recently patient was evaluated at [facility] about 10 days ago. Denies any coughing congestion upper respiratory symptoms. Patient was in shelter. Presented from shelter with having increasing abdominal pain. Blood in the urostomy bag. No fever no chills. Positive nausea. No vomiting. Patient is from home. Long history of chronic constipation with multiple narcotic medications. Related Data Home Medications Medication Instructions Recorded Confirmed acetaminophen 325 mg tablet 325 mg PO TID 02/27/22 02/27/22 bisacodyl 5 mg tablet 10 mg PO DAILY 02/27/22 02/27/22 folic acid 1 mg tablet 1 mg PO DAILY 02/27/22 02/27/22 gabapentin 400 mg capsule 400 mg PO BID 02/27/22 02/27/22 glycerin (adult) 1 supp [place] BID PRN 02/27/22 02/27/22 lactulose 10 gram/15 mL oral 30 ml PO TID 02/27/22 02/27/22 solution methadone 10 mg/mL oral concentrate 25 mg PO DAILY 02/27/22 nitrofurantoin 100 mg PO BID 02/27/22 02/27/22 monohydrate/macrocrystals 100 mg capsule (Macrobid) polyethylene glycol 3350 17 34 g PO QID 02/27/22 02/27/22 gram/dose oral powder (Gavilax) pyridoxine (vitamin B6) 50 mg 50 mg PO DAILY 02/27/22 02/27/22 tablet sennosides 8.6 mg-docusate sodium 2 tab-cap PO BID 02/27/22 02/27/22 50 mg tablet (Senna-S) thiamine HCl (vitamin B1) 100 mg 100 mg PO DAILY 02/27/22 02/27/22 tablet trazodone 100 mg tablet 100 mg PO BEDTIME 02/27/22 02/27/22 Allergies Allergy/AdvReac Type Severity Reaction Status Date / Time morphine [Morphine] Allergy Severe TROUBLE Verified 04/09/21 19:16 BREATHING Sulfa (Sulfonamide Allergy Mild HIVES Verified 04/09/21 19:16 Antibiotics) [facility] Past Medical History Attestation statement: The following information was validated with the patient. Medical History Carditis Opioid use disorder Sepsis Surgical History History of nephrectomy, right History of total cystectomy History of urostomy Social History Social History Household Members: Unknown / Unable to assess Housing: Unknown / Unable to assess Do you presently have visiting nurse or other home services: No Unable to assess alcohol history related to: Refusing to respond Patient Tobacco Use Status: Current everyday Tobacco user Tobacco use type: Cigarette Cigarette Packs Per Day: 1 Years Smoked: 15 Second Hand Smoke Exposure: No Substance Use Type: Crack/Cocaine, Heroin and IV Drugs Advance Directives: No Advance Directives Information Provided: No Patient : No service: No Current occupational status: unemployed Physical Exam ED Vital Signs: Vital Signs - 24 hr 02/27/22 13:55 02/27/22 15:38 02/27/22 15:56 Temperature 97.7 F Pulse Rate 63 Respiratory Rate 18 16 15 Blood Pressure 116/58 L Pulse Oximetry 100 BMI result Body Mass Index 16.4 Appearance: Alert. Oriented X3. Complaining of abdominal pain. Eyes: Pupils equal, round and reactive to light. ENT: Pharynx normal. Neck: Normal inspection. Neck supple. No lymph nodes noted. No crepitus CVS: Normal heart rate and rhythm. Pulses normal. Normal S1 and S2 Respiratory: No respiratory distress. Breath sounds normal. No Wheezing. No rales Abdomen: Distended, pain in the left upper quadrant. Positive blood in the urostomy bag. Skin: Skin warm and dry. Normal skin color. Normal skin turgor. Extremities: No lower extremity edema. Neurovascular intact to all extremities. No Lacerations. No Rash Neuro: Oriented X 3. No motor deficit. No sensory deficit. Moving all extermities. No slurred speech Medical Decision Making MDM Narrative Medical decision making narrative: Patient complaining of diffuse abdominal pain extreme on the left side. Had some nausea. Had blood in the urine. Patient had complicated history of urostomy tube. Currently CT scan of the abdomen is pending. Looking for obstruction, abscess, perforation. Given pain medication. Lab Data Result diagrams: 02/27/22 15:28 02/27/22 15:28 Labs: Lab Results 02/27/22 02/27/22 02/27/22 Range/Units 15:28 15:28 15:28 WBC 5.6 (4.8-10.8) X10*3/uL RBC 3.53 L (4.20-5.50) X10*6/uL Hgb 9.2 L (12.0-16.0) g/dl Hct 31.5 L (37.0-47.0) % MCV 89.2 (80.0-98.0) fL MCH 26.1 L (27.0-33.0) pg MCHC 29.2 L (31.0-35.0) g/dl RDW 18.6 H (11.0-16.0) % Plt Count 281 (160-400) X10*3/uL MPV 9.1 L (9.4-12.3) fL Immature Gran % (Auto) 0.2 (0.0-0.4) % Neut % (Auto) 45.4 (45-73) % Lymph % (Auto) 40.3 H (20-40) % [place] % (Auto) 11.9 H (2-11) % Eos % (Auto) 1.8 (0-4) % Baso % (Auto) 0.4 (0-2) % Lymph # (Auto) 2.3 (1.2-4.9) X10*3/uL [place] # (Auto) 0.7 (0.1-1.2) X10*3/uL Eos # (Auto) 0.1 (0.0-0.4) X10*3/uL Baso # (Auto) 0.0 (0.0-0.2) X10*3/uL Abs Immat Gran (auto) 0.01 (0.00-0.03) X10*3/uL Absolute Neuts (auto) 2.6 (2.0-8.3) x10*3/uL Absolute Nucleated RBC 0.000 (0.0-0.012) X10*3/uL Nucleated RBC % (auto) 0.0 (0.0-0.2) /100WBC Sodium 139 (135-145) mmol/L Potassium 4.1 (3.3-5.1) mmol/L Chloride 108 (96-108) mmol/L Carbon Dioxide 25 (22-29) mmol/L Anion Gap 10 L (12-20) BUN 19 H (9-16) mg/dL Creatinine 0.69 (0.5-1.4) mg/dL Estim Creat Clear Calc 70.9 Estimated GFR > 60 Random Glucose 73 (60-115) mg/dL Calcium 9.1 D (8.4-10.2) mg/dL Total Bilirubin 0.2 (0.0-1.0) mg/dL Direct Bilirubin < 0.2 (0.0-0.5) mg/dL AST 27 (5-31) U/L ALT 33 H (0-31) U/L Alkaline Phosphatase 66 D (39-117) U/L Total Protein 7.7 (6.5-8.0) g/dL Albumin 3.5 (3.5-5.0) g/dL Lipase 29 (8-78) U/L Beta HCG, Quant < 2 mIU/mL Urine Color Urine Appearance Urine pH (5.0-8.0) Ur Specific [place] (1.005-1.025) Urine Protein (NEG-TRACE) MG/DL Urine Glucose (UA) (NEG) MG/DL Urine Ketones (NEG) MG/DL Urine Blood (NEG) Urine Nitrite (NEG) Ur Leukocyte Esterase (NEG) Urine RBC (0) /HPF Urine WBC (0-4) /HPF Ur Squamous Epith Cells /LPF Urine Bacteria /LPF Urine Opiates Screen (Not Detect) Urine Fentanyl Screen (Not Detect) Ur Barbiturates Screen (Not Detect) Ur Phencyclidine Scrn (Not Detect) Ur Amphetamines Screen (Not Detect) U Benzodiazepines Scrn (Not Detect) Urine Cocaine Screen (Not Detect) U Marijuana (THC) Screen (Not Detect) 02/27/22 02/27/22 Range/Units 16:04 16:04 WBC (4.8-10.8) X10*3/uL RBC (4.20-5.50) X10*6/uL Hgb (12.0-16.0) g/dl Hct (37.0-47.0) % MCV (80.0-98.0) fL MCH (27.0-33.0) pg MCHC (31.0-35.0) g/dl RDW (11.0-16.0) % Plt Count (160-400) X10*3/uL MPV (9.4-12.3) fL Immature Gran % (Auto) (0.0-0.4) % Neut % (Auto) (45-73) % Lymph % (Auto) (20-40) % [place] % (Auto) (2-11) % Eos % (Auto) (0-4) % Baso % (Auto) (0-2) % Lymph # (Auto) (1.2-4.9) X10*3/uL [place] # (Auto) (0.1-1.2) X10*3/uL Eos # (Auto) (0.0-0.4) X10*3/uL Baso # (Auto) (0.0-0.2) X10*3/uL Abs Immat Gran (auto) (0.00-0.03) X10*3/uL Absolute Neuts (auto) (2.0-8.3) x10*3/uL Absolute Nucleated RBC (0.0-0.012) X10*3/uL Nucleated RBC % (auto) (0.0-0.2) /100WBC Sodium (135-145) mmol/L Potassium (3.3-5.1) mmol/L Chloride (96-108) mmol/L Carbon Dioxide (22-29) mmol/L Anion Gap (12-20) BUN (9-16) mg/dL Creatinine (0.5-1.4) mg/dL Estim Creat Clear Calc Estimated GFR Random Glucose (60-115) mg/dL Calcium (8.4-10.2) mg/dL Total Bilirubin (0.0-1.0) mg/dL Direct Bilirubin (0.0-0.5) mg/dL AST (5-31) U/L ALT (0-31) U/L Alkaline Phosphatase (39-117) U/L Total Protein (6.5-8.0) g/dL Albumin (3.5-5.0) g/dL Lipase (8-78) U/L Beta HCG, Quant mIU/mL Urine Color RED A Urine Appearance CLOUDY Urine pH 7.0 (5.0-8.0) Ur Specific [place] 1.020 (1.005-1.025) Urine Protein 3+ H (NEG-TRACE) MG/DL Urine Glucose (UA) NEG (NEG) MG/DL Urine Ketones NEG (NEG) MG/DL Urine Blood 3+ H (NEG) Urine Nitrite NEG (NEG) Ur Leukocyte Esterase TRACE H (NEG) Urine RBC TNTC H (0) /HPF Urine WBC 1-4 (0-4) /HPF Ur Squamous Epith Cells TRACE /LPF Urine Bacteria TRACE /LPF Urine Opiates Screen Not Detected (Not Detect) Urine Fentanyl Screen POSITIVE H (Not Detect) Ur Barbiturates Screen Not Detected (Not Detect) Ur Phencyclidine Scrn Not Detected (Not Detect) Ur Amphetamines Screen Not Detected (Not Detect) U Benzodiazepines Scrn Not Detected (Not Detect) Urine Cocaine Screen Not Detected (Not Detect) U Marijuana (THC) Screen Not Detected (Not Detect) Discharge Plan Discharge Clinical Impression: Acute dehydration Patient Disposition: Still a Patient Prescriptions: No Action thiamine HCl (vitamin B1) 100 mg Tablet 100 mg PO DAILY 0RF bisacodyl 5 mg Tablet 10 mg PO DAILY 0RF lactulose 10 gram/15 mL Solution 30 ml PO TID 0RF acetaminophen 325 mg Tablet 325 mg PO TID 0RF sennosides-docusate sodium [Senna-S] 8.6-50 mg Tablet 2 tab-cap PO BID 0RF gabapentin 400 mg Capsule 400 mg PO BID 0RF trazodone 100 mg Tablet 100 mg PO BEDTIME 0RF pyridoxine (vitamin B6) 50 mg Tablet 50 mg PO DAILY 0RF folic acid 1 mg Tablet 1 mg PO DAILY 0RF methadone 10 mg/mL Concentrate 25 mg PO DAILY 0RF polyethylene glycol 3350 [Gavilax] 17 gram/dose powder 34 g PO QID 0RF glycerin (adult) Suppository 1 supp [place] BID PRN (Reason: Constipation) 0RF nitrofurantoin monohyd/m-cryst [Macrobid] 100 mg Capsule 100 mg PO BID 0RF Rx Instructions: must administer with a meal/food
[2022-02-27] MEDS: 0.9 % Sodium Chloride 1,000 ML 999 ML IV (15:30)
[2022-02-27] MEDS: ondansetron HCL 4 MG/2 ML VIAL IVPUSH (15:37)
[2022-02-27 15:38] VITALS: RESP 16
[2022-02-27] MEDS: HYDROmorphone HCl 0.5 MG/0.5 ML SYRINGE IVPUSH (15:38)
[2022-02-27 15:42] LABS: MANUAL DIFF FLAG NO
[2022-02-27 15:43] LABS: Basophils Percent Auto 0.4 % (0-2); Eosinophils Absolute Auto 0.1 X10*3/uL (0.0-0.4); Eosinophils Percent Auto 1.8 % (0-4); Hematocrit 31.5 % (37.0-47.0); Hemoglobin 9.2 g/dl (12.0-16.0); Imm Gran Abs Auto 0.01 X10*3/uL (0.00-0.03); Imm Gran Pct Auto 0.2 % (0.0-0.4); Lymphocytes Absolute Auto 2.3 X10*3/uL (1.2-4.9); Lymphocytes Percent Auto 40.3 % (20-40); Mean Corpuscular HGB Conc 29.2 g/dl (31.0-35.0); Mean Corpuscular Hemoglobin 26.1 pg (27.0-33.0); Mean Corpuscular Volume 89.2 fL (80.0-98.0); Mean Platelet Volume 9.1 fL (9.4-12.3); Monocytes Absolute Auto 0.7 X10*3/uL (0.1-1.2); Monocytes Percent Auto 11.9 % (2-11); Neutrophils Absolute Auto 2.6 x10*3/uL (2.0-8.3); Neutrophils Percent Auto 45.4 % (45-73); Platelet Count 281 X10*3/uL (160-400); Red Blood Count 3.53 X10*6/uL (4.20-5.50); Red Cell Distribution Width 18.6 % (11.0-16.0); White Blood Count 5.6 X10*3/uL (4.8-10.8)
[2022-02-27 15:56] VITALS: RESP 15
[2022-02-27] MEDS: HYDROmorphone HCl 2 MG/ML VIAL IVPUSH (15:56)
[2022-02-27 16:02] LABS: Alanine Aminotransferase 33 U/L (0-31); Albumin Level 3.5 g/dL (3.5-5.0); Alkaline Phosphatase 66 U/L (39-117); Anion Gap 10 (12-20); Aspartate Amino Transferase 27 U/L (5-31); Bilirubin Direct < 0.2 mg/dL (0.0-0.5); Bilirubin Total 0.2 mg/dL (0.0-1.0); Blood Urea Nitrogen 19 mg/dL (9-16); Calcium 9.1 mg/dL (8.4-10.2); Carbon Dioxide 25 mmol/L (22-29); Chloride 108 mmol/L (96-108); Creatinine Clr Calc Pharmacy 70.9; Estimated Glomerular Filt Rate > 60; Glucose Random 73 mg/dL (60-115); Lipase 29 U/L (8-78); Potassium 4.1 mmol/L (3.3-5.1); Sodium 139 mmol/L (135-145); Total Protein 7.7 g/dL (6.5-8.0)
[2022-02-27 16:08] LABS: HCG Quantitative < 2 mIU/mL
[2022-02-27 16:20] LABS: Appearance Urine CLOUDY; Color Urine RED; Glucose Urine UA NEG (NEG); Leukocyte Esterase Urine TRACE (NEG); Nitrite Urine NEG (NEG); UACC Culture Trigger NO; Urine Blood 3+ (NEG); Urine Ketones NEG (NEG); Urine Protein 3+ MG/DL (NEG-TRACE)
--- NOTE | 2022-02-27 16:25 | PHA.MEDREC ---
Pharmacy Consult ? Medication Reconciliation Pharmacy has completed the medication reconciliation. Received faxed medication list from [facility]. Pt was to be started on macrobid 100mg BID from 02/27/22-03/05/22. Jyoti Stone, TristonD
[2022-02-27 16:29] LABS: RBC Urine TNTC /HPF (0)
[2022-02-27 16:30] LABS: Amphetamine Screen Urine Not Detected (Not Detect); Barbiturates, Urine Not Detected (Not Detect); Benzodiazepines Screen Urine Not Detected (Not Detect); Cannabinoid Screen Urine Not Detected (Not Detect); Cocaine Screen Urine Not Detected (Not Detect); Fentanyl, urine POSITIVE (Not Detect); Opiate Screen Urine Not Detected (Not Detect); Phencyclidine Screen Urine Not Detected (Not Detect)
[2022-02-27 16:31] LABS: Bacteria Urine TRACE /LPF; Squamous Epithelial Cell Urine TRACE /LPF
[2022-02-27] MEDS: iohexoL 350 MG/ML 100 ML INFUS..BTL IV (17:08)
[2022-02-27 17:50] VITALS: BP 127/76; PULSE 57; RESP 15; RESP 19; O2SAT 100
[2022-02-27] MEDS: HYDROmorphone HCl 1 MG/ML SYRINGE IM (17:50)
== END 2022-02-27 19:39 | disposition home or self-care (01) ==
PROVIDERS: Emergency Medicine Emergency Medical Services; Emergency Provider Emergency Medicine
DX: E86.0 Dehydration (principal); R10.9 Unspecified abdominal pain; K59.09 Other constipation; R16.2 Hepatomegaly with splenomegaly, not elsewhere classified; F17.210 Nicotine dependence, cigarettes, uncomplicated; Z79.891 Long term (current) use of opiate analgesic; Z79.899 Other long term (current) drug therapy; Z93.6 Other artificial openings of urinary tract status; Z90.5 Acquired absence of kidney
CPT/HCPCS: 36415; 74177; 80048; 80076; 80307; 81001; 83690; 84702; 85025; 96361; 96372; 96374; 96375; 96376; 99284; J1170; J2405; Q9967

== ENCOUNTER 2022-11-12 18:15 | Emergency (ER) | payer SELFPAY ==
[2022-11-12 18:26] VITALS: BP 107/77; BP 118/64; PULSE 111; PULSE 66; RESP 16; TEMP 37.4; O2SAT 100; O2SAT 98; BMI 21.0
--- NOTE | 2022-11-12 18:33 | ED_ITS ---
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 Patient was given 4 mg of IN Narcan with positive result. Patient denies taking any illicit substances or EtOH, does not remember incident. Reports intermittent lightheadedness over the past few days unknown if patient syncopized. Unknown head trauma. Patient requesting to be discharged. Denies headache at present, CP/SOB, abdominal pain, nausea / vomiting, SI/HI MD complaint: other Related Data Home Medications Medication Instructions Recorded Confirmed acetaminophen 325 mg tablet 325 mg PO TID 02/27/22 02/27/22 bisacodyl 5 mg tablet 10 mg PO DAILY 02/27/22 02/27/22 folic acid 1 mg tablet 1 mg PO DAILY 02/27/22 02/27/22 gabapentin 400 mg capsule 400 mg PO BID 02/27/22 02/27/22 glycerin (adult) 1 supp NC BID PRN Constipation 02/27/22 02/27/22 lactulose 10 gram/15 mL oral 30 ml PO TID 02/27/22 02/27/22 solution methadone 10 mg/mL oral concentrate 25 mg PO DAILY 02/27/22 nitrofurantoin 100 mg PO BID 02/27/22 02/27/22 monohydrate/macrocrystals 100 mg capsule (Macrobid) polyethylene glycol 3350 17 34 g PO QID 02/27/22 02/27/22 gram/dose oral powder (Gavilax) pyridoxine (vitamin B6) 50 mg 50 mg PO DAILY 02/27/22 02/27/22 tablet sennosides 8.6 mg-docusate sodium 2 tab-cap PO BID 02/27/22 02/27/22 50 mg tablet (Senna-S) thiamine HCl (vitamin B1) 100 mg 100 mg PO DAILY 02/27/22 02/27/22 tablet trazodone 100 mg tablet 100 mg PO BEDTIME 02/27/22 02/27/22 Allergies Allergy/AdvReac Type Severity Reaction Status Date / Time morphine [Morphine] Allergy Severe TROUBLE Verified 04/09/21 19:16 BREATHING Sulfa (Sulfonamide Allergy Mild HIVES Verified 04/09/21 19:16 Antibiotics) Review of Systems Review of Systems: Constitutional: No Fever, No Chills, No Fatigue, No Malaise ENT/Mouth: No Ear Pain, No Nasal Congestion, No sore throat Eyes: No Eye Pain, No Swelling, No Vision Changes Cardiovascular: No Chest Pain, No SOB Respiratory: No Cough, No Sputum, No Dyspnea Gastrointestinal: No Nausea, No Vomiting, No Diarrhea, No Constipation, No Abdominal pain Genitourinary: No Dysuria, No Hematuria, No Urinary Incontinence/retention Musculoskeletal: No joint pain, No Myalgias, No Joint Swelling Skin: No Skin Lesions, No rash Neuro: No Weakness, + Loss of Consciousness, + intermittent lightheadedness, No Headache Psych: No Anxiety/Panic, No Depression, No SI/HI/AH/VH, + Social Issues Yes all other systems are reviewed and are negative Constitutional: Constitutional: Reports as per [facility] Past Medical History Attestation statement: The following information was validated with the patient. Medical History Carditis Opioid use disorder Sepsis Surgical History History of nephrectomy, right History of total cystectomy History of urostomy Social History Social History Household Members: Unknown / Unable to assess Housing: Unknown / Unable to assess Do you presently have visiting nurse or other home services: No Unable to assess alcohol history related to: Refusing to respond Alcohol intake: unknown Patient Tobacco Use Status: Current everyday Tobacco user Tobacco use type: Cigarette Cigarette Packs Per Day: 1 Years Smoked: 15 Smoked in Last 30 Days: No Second Hand Smoke Exposure: No Use of substances other than those prescribed or required for medical reasons: Unknown Substance Use Type: Crack/Cocaine, Heroin and IV Drugs Advance Directives: No Advance Directives Information Provided: No service: No Current occupational status: unemployed Physical Exam Vital Signs: Vital Signs: Last Vital Signs Temp 99.4 F 11/12/22 18:26 Pulse 111 H 11/12/22 18:26 Resp 16 11/12/22 18:26 BP 107/77 11/12/22 18:26 Pulse Ox 100 11/12/22 18:26 O2 Del Method 11/12/22 18:26 BMI result Body Mass Index 21.0 Const: General: no acute distress, alert, awake and anxious Orientation/consciousness: patient oriented x3 Limitations: no limitations HEENT: Head: Yes normal to inspection and Yes atraumatic Ears: hearing grossly normal bilaterally General nose exam: Normal external nose present Face and sinus: Yes normal facial exam Eyes: General: appearance normal, both eyes and all related structures Pupils: Equal, round and reactive pupils present EOM: EOMs intact bilaterally Neck: Neck: Yes normal visual inspection and Yes no meningeal signs Resp: Effort & Inspection: normal respiratory effort and no respiratory distress Cardio: Rate: regular rate Skin: Rashes: no rashes Wounds: no wounds Neuro: General: patient oriented x3, gait normal, tone normal, moves all extremities, no meningeal signs and CN's II-XI intact bilaterally Cranial nerves: Yes Equal, round and reactive pupils present Gait exam (Neuro): Normal gait present Extrem: General: Yes normal to inspection Psych: Thought content: suicidality and no homicidality Course Course Course Narrative: - patient remained awake and alert, ambulating with steady gait in the emergency department. Discharge order placed. 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 Patient was given 4 mg of IN Narcan with positive result. On exam mildly tachycardic, anxious, pacing, requesting to be discharged, awake and alert, clinically sober.. Suspect substance abuse /Unintentional overdose. ? Syncope or seizure, patient refusing labs or CT. will observe and reassess patient for 1 hour due to Narcan use and discharge plan: Home Narcan Differential Diagnosis Differential Diagnoses: The differential diagnosis associated with the presentation includes as above Consult Healthcare Provider Management of the patient was discussed with: Behavioral Health Provider Lab Data MDM Lab Attestation statement: I reviewed the patient's lab results. Discharge Plan Discharge Clinical Impression: Drug overdose Patient Disposition: Home, Self-Care Instructions: Adult Overdose (ED) Additional Instructions: avoid drug and alcohol use this can kill you follow-up with her doctor Prescriptions: No Action thiamine HCl (vitamin B1) 100 mg Tablet 100 mg PO DAILY bisacodyl 5 mg Tablet 10 mg PO DAILY lactulose 10 gram/15 mL Solution 30 ml PO TID acetaminophen 325 mg Tablet 325 mg PO TID sennosides-docusate sodium [Senna-S] 8.6-50 mg Tablet 2 tab-cap PO BID gabapentin 400 mg Capsule 400 mg PO BID trazodone 100 mg Tablet 100 mg PO BEDTIME pyridoxine (vitamin B6) 50 mg Tablet 50 mg PO DAILY folic acid 1 mg Tablet 1 mg PO DAILY methadone 10 mg/mL Concentrate 25 mg PO DAILY polyethylene glycol 3350 [Gavilax] 17 gram/dose powder 34 g PO QID glycerin (adult) Suppository 1 supp NC BID PRN (Reason: Constipation) nitrofurantoin monohyd/m-cryst [Macrobid] 100 mg Capsule 100 mg PO BID Rx Instructions: must administer with a meal/food Referrals: [facility] [Outside] Interventions: Thayne-Suicide Risk Severity Scale Last Done: 11/12/22 18:54 ED Discharge Assessment Last Done: 11/12/22 19:18 Discharge Date/Time: 11/12/22 19:20
--- NOTE | 2022-11-12 18:53 | PC.NURSE ---
Pt stating she wants to leave and go home, ambulatory with strong steady gait, speaking in full complete sentences. Pt to be observed for 45 minutes and if okay can be discharged home.
--- NOTE | 2022-11-12 20:43 | MHC.RECOVSUP ---
? Reason for consult:OPI o? Current location:[id number]? o? Identified substance use concern:? -? Overdose ? Intervention:N/a ? Plan:Discharge ? Additional information:[facility]A tried to speak with the pt, but she wasn't interested in any services, I tried to give her some recovery resource pamphlets, but she refused them.
== END 2022-11-12 19:20 | disposition home or self-care (01) ==
PROVIDERS: Emergency Provider Emergency Medicine
DX: T40.1X1A Poisoning by heroin, accidental (unintentional), initial encounter (principal); Y92.9 Unspecified place or not applicable; Z79.899 Other long term (current) drug therapy
CPT/HCPCS: 99283; 99285